=== PATIENT | female | born 1990 | race Caucasian/White ===

== ENCOUNTER 2023-05-08 11:04 | Outpatient (REF) | payer OTHER, SELFPAY ==
[2023-05-08 11:41] LABS: MANUAL DIFF FLAG NO
[2023-05-08 11:51] LABS: Basophils Absolute Auto 0.1 X10*3/uL (0.0-0.2); Basophils Percent Auto 0.9 % (0-2); Eosinophils Absolute Auto 0.2 X10*3/uL (0.0-0.4); Hematocrit 43.8 % (37.0-47.0); Hemoglobin 14.6 g/dl (12.0-16.0); Imm Gran Abs Auto 0.07 X10*3/uL (0.00-0.03); Imm Gran Pct Auto 0.7 % (0.0-0.4); Lymphocytes Absolute Auto 3.2 X10*3/uL (1.2-4.9); Mean Corpuscular HGB Conc 33.3 g/dl (31.0-35.0); Mean Corpuscular Volume 86.9 fL (80.0-98.0); Mean Platelet Volume 10.3 fL (9.4-12.3); Monocytes Absolute Auto 0.7 X10*3/uL (0.1-1.2); Monocytes Percent Auto 6.5 % (2-11); Neutrophils Absolute Auto 6.4 x10*3/uL (2.0-8.3); Neutrophils Percent Auto 59.9 % (45-73); Platelet Count 374 X10*3/uL (160-400); Red Blood Count 5.04 X10*6/uL (4.20-5.50); Red Cell Distribution Width 13.1 % (11.0-16.0); White Blood Count 10.7 X10*3/uL (4.8-10.8)
[2023-05-08 13:00] LABS: Alanine Aminotransferase 20 U/L (0-31); Albumin Level 4.3 g/dL (3.5-5.0); Alkaline Phosphatase 103 U/L (39-117); Anion Gap 10 (12-20); Aspartate Amino Transferase 14 U/L (5-31); Bilirubin Total 0.4 mg/dL (0.0-1.0); Blood Urea Nitrogen 22 mg/dL (9-16); Calcium 9.6 mg/dL (8.4-10.2); Carbon Dioxide 22 mmol/L (22-29); Chloride 113 mmol/L (96-108); Cholesterol 177 mg/dL (<200); Estimated Glomerular Filt Rate > 60; Glucose Random 104 mg/dL (60-115); HDL Cholesterol 54 mg/dL (>40); LDL Cholesterol Calculated 97 mg/dL (<100); Potassium 4.1 mmol/L (3.3-5.1); Sodium 141 mmol/L (135-145); Triglycerides 132 mg/dL (<150)
[2023-05-08 13:15] LABS: TSH reflex Free T4 1.87 uIU/mL (0.32-4.0)
== END 2023-05-08 11:05 | disposition home or self-care (01) ==
LOC: HO.LAB 11:04
PROVIDERS: PCP Internal Medicine; Visit Provider Internal Medicine
DX: Z00.01 Encounter for general adult medical examination with abnormal findings (principal); E04.1 Nontoxic single thyroid nodule; F43.12 Post-traumatic stress disorder, chronic; I10 Essential (primary) hypertension; K58.8 Other irritable bowel syndrome; R32 Unspecified urinary incontinence
CPT/HCPCS: 36415; 80053; 80061; 84443; 85025

== ENCOUNTER 2023-06-01 07:30 | Outpatient (REF) | payer OTHER, SELFPAY ==
--- NOTE | ~2023-06-01 | XR_ITS ---
EXAMINATION: XR SHOULDER, RIGHT CLINICAL INFORMATION: Pain in unspecified shoulder. COMPARISON: None available. TECHNIQUE: Three views of the right shoulder. FINDINGS: Mild degenerative changes in the acromioclavicular joint with joint space narrowing and hypertrophic change. Glenohumeral alignment preserved. XR/XR shoulder RT min 2V IMPRESSION: Mild degenerative changes in the acromioclavicular joint.
== END 2023-06-01 07:31 | disposition home or self-care (01) ==
LOC: HO.HOSX 07:30
PROVIDERS: Visit Provider Orthopaedic Surgery
DX: M25.511 Pain in right shoulder (principal); M24.811 Other specific joint derangements of right shoulder, not elsewhere classified; G56.21 Lesion of ulnar nerve, right upper limb; S70.11XA Contusion of right thigh, initial encounter; Y04.8XXA Assault by other bodily force, initial encounter; Y93.9 Activity, unspecified; Y92.9 Unspecified place or not applicable; Y99.9 Unspecified external cause status
CPT/HCPCS: 73030; 99202

== ENCOUNTER 2023-06-01 10:45 | Outpatient (AMB) | payer OTHER, SELFPAY ==
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
[2023-06-01 10:54] VITALS: BMI 51.2
== END 2023-06-01 11:39 | disposition home or self-care (01) ==
PROVIDERS: PCP Internal Medicine; Visit Provider Orthopaedic Surgery
DX: G56.21 Lesion of ulnar nerve, right upper limb (principal); M24.811 Other specific joint derangements of right shoulder, not elsewhere classified; M54.16 Radiculopathy, lumbar region; S70.11XA Contusion of right thigh, initial encounter
CPT/HCPCS: 99204

== ENCOUNTER 2023-06-13 14:32 | Outpatient (AMB) | payer OTHER, SELFPAY ==
[2023-06-13 14:44] VITALS: BMI 51.2
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
== END 2023-06-13 15:15 | disposition home or self-care (01) ==
PROVIDERS: PCP Internal Medicine; Visit Provider Orthopaedic Surgery
DX: R20.0 Anesthesia of skin (principal); R20.2 Paresthesia of skin; M79.641 Pain in right hand
CPT/HCPCS: 99203

== ENCOUNTER → 2023-06-13 14:32 | Outpatient (BNVA) | payer OTHER, SELFPAY | PROVIDERS: PCP Internal Medicine; Visit Provider Orthopaedic Surgery | DX: R20.2 Paresthesia of skin (principal); R20.0 Anesthesia of skin | CPT/HCPCS: 99202 ==

== ENCOUNTER 2023-06-20 10:25 | Outpatient (AMB) | payer OTHER, SELFPAY ==
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
[2023-06-20 11:39] VITALS: BP 134/86; PULSE 104; RESP 16; O2SAT 96; BMI 54.1
== END 2023-06-20 11:21 | disposition home or self-care (01) ==
PROVIDERS: PCP Internal Medicine; Referring Provider Orthopaedic Surgery; Visit Provider Anesthesiology
DX: M54.16 Radiculopathy, lumbar region (principal); M54.12 Radiculopathy, cervical region; M54.50 Low back pain, unspecified; M54.2 Cervicalgia; M47.812 Spondylosis without myelopathy or radiculopathy, cervical region; G89.4 Chronic pain syndrome
CPT/HCPCS: 99204

== ENCOUNTER → 2023-06-20 10:25 | Outpatient (BNVA) | payer OTHER, SELFPAY | PROVIDERS: PCP Internal Medicine; Referring Provider Orthopaedic Surgery; Visit Provider Anesthesiology | DX: M54.16 Radiculopathy, lumbar region (principal); M47.22 Other spondylosis with radiculopathy, cervical region; G89.4 Chronic pain syndrome | CPT/HCPCS: 99202 ==

== ENCOUNTER 2023-07-02 09:28 | Outpatient (AMB) | payer OTHER, SELFPAY ==
--- NOTE | 2023-07-02 09:48 | A.OFFVIS_ITS ---
Intake Vital Signs 07/02/23 09:49 Height 5 ft 1 in Weight 286 lb BMI 54.0 Intake Visit Reasons: OV - Right Shoulder MRI Review Intake Note: Maryam is a 33 year old right hand dominant female who presents today for an MRI review of the right shoulder. Patient reports that she is having continued pain. Allergies cariprazine [From Vraylar] Allergy (Verified 07/02/23 09:49) lip swelling ceftriaxone [From Rocephin] Allergy (Verified 07/02/23 09:49) Anaphylaxis HPI OV - Right Shoulder MRI Review HPI Details Maryam is a 33 year old female who presents today for an MRI review of the right shoulder. She has been in PT for her back and is focusing on that. Her shoulder still bothers her all the time. It is not worse at night but does bother her with reaching and lifting activities. 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 MRI 06/16/2023 at [facility]: Impression: 1. There is a very small focus of partial articular surface tearing of the distal insertion of the supraspinatus tendon. 2. No full thickness tear of RTC is noted Assessment & Plan Assessment & Plan (1) Internal derangement of right shoulder: Code(s): M24.811 - Other specific joint derangements of right shoulder, not elsewhere classified Plan: Maryam is doing PT. Her MRI is unremarkable. I recommend PT. There is no intervention warranted at this time. She is a patient in pain management and should continue under their care. Coding Level of Care Code Est Pt Level 4 (82836) Diagnoses Internal derangement of right shoulder M24.811
[2023-07-02 09:49] VITALS: BMI 54.0
== END 2023-07-02 10:21 | disposition home or self-care (01) ==
PROVIDERS: PCP Internal Medicine; Visit Provider Orthopaedic Surgery
DX: M24.811 Other specific joint derangements of right shoulder, not elsewhere classified (principal)
CPT/HCPCS: 99214

== ENCOUNTER → 2023-07-02 09:28 | Outpatient (BNVA) | payer OTHER, SELFPAY | PROVIDERS: PCP Internal Medicine; Visit Provider Orthopaedic Surgery | DX: M24.811 Other specific joint derangements of right shoulder, not elsewhere classified (principal) | CPT/HCPCS: 99212 ==

== ENCOUNTER 2023-07-09 11:25 | Outpatient (AMB) | payer OTHER, SELFPAY ==
[2023-07-09 11:28] VITALS: BP 136/82; PULSE 104; RESP 16; O2SAT 98; BMI 54.0
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
== END 2023-07-09 11:48 | disposition home or self-care (01) ==
PROVIDERS: PCP Internal Medicine; Visit Provider Anesthesiology
DX: M54.12 Radiculopathy, cervical region (principal); M47.812 Spondylosis without myelopathy or radiculopathy, cervical region; G89.4 Chronic pain syndrome
CPT/HCPCS: 99213

== ENCOUNTER → 2023-07-09 11:25 | Outpatient (BNVA) | payer OTHER, SELFPAY | PROVIDERS: PCP Internal Medicine; Visit Provider Anesthesiology | DX: M47.22 Other spondylosis with radiculopathy, cervical region (principal); M54.6 Pain in thoracic spine; M54.50 Low back pain, unspecified; G89.4 Chronic pain syndrome | CPT/HCPCS: 99212 ==

== ENCOUNTER 2023-07-20 08:15 | Outpatient (REF) | payer OTHER, SELFPAY ==
--- NOTE | 2023-07-20 08:18 | EMG_ITS ---
Chief complaint: Neck pain, arm pain, hand numbness Reason for referral: Evaluate for radiculopathy versus Carpal Tunnel Syndrome Referred by: Dr. Concepcion Procedure done: Bilateral upper extremities NCS/EMG Precautions and/or limitations: None The limb temperature was monitored continuously and remained between 32-36 degrees C during the performance of the NCS. Nerve Conduction Studies Anti Sensory Summary Table ?Stim Site NR Onset (ms) Norm Onset (ms) Peak (ms) Norm Peak (ms) O-P Amp (?V) Norm O-P Amp Site1 Site2 Delta-0 (ms) Dist (cm) Ramsey (m/s) Norm Ramsey (m/s) Left Median Anti Sensory (2nd Digit) Wrist ? 2.5 3.2 <3.6 38.1 >10 Wrist 2nd Digit 2.5 14.0 56 Right Median Anti Sensory (2nd Digit) Wrist ? 2.3 3.1 <3.6 48.0 >10 Wrist 2nd Digit 2.3 14.0 61 Right Radial Anti Sensory (Thumb) Forearm ? 1.4 2.0 <3.1 16.0 Forearm Thumb 1.4 0.0 Left Ulnar Anti Sensory (5th Digit) Wrist ? 2.4 3.0 <3.7 27.8 >15.0 Wrist 5th Digit 2.4 14.0 58 Right Ulnar Anti Sensory (5th Digit) Wrist ? 2.3 2.9 <3.7 23.1 >15.0 Wrist 5th Digit 2.3 14.0 61 Motor Summary Table ?Stim Site NR Onset (ms) Norm Onset (ms) O-P Amp (mV) Norm O-P Amp iAmp (mV) Amp (1st) (%) Site1 Site2 Delta-0 (ms) Dist (cm) Ramsey (m/s) Norm Ramsey (m/s) Left Median Motor (Abd Poll Brev) Wrist ? 2.8 <3.9 8.6 >4.5 10.9 100.0 Elbow Wrist 3.6 19.5 54 >45 Elbow ? 6.4 8.2 10.3 95.3 Right Median Motor (Abd Poll Brev) Wrist ? 3.5 <3.9 7.5 >4.5 9.6 100.0 Elbow Wrist 3.4 17.0 50 >45 Elbow ? 6.9 7.4 9.2 98.7 Left Ulnar Motor (Abd Dig Minimi) Wrist ? 2.4 <3.0 6.7 >5 7.8 100.0 B Elbow Wrist 3.1 18.5 60 >45 B Elbow ? 5.5 7.0 8.4 104.5 A Elbow B Elbow 1.4 10.0 71 >45 A Elbow ? 6.9 7.4 8.9 110.4 Right Ulnar Motor (Abd Dig Minimi) Wrist ? 2.0 <3.0 7.3 >5 8.9 100.0 B Elbow Wrist 3.5 19.0 54 >45 B Elbow ? 5.5 7.2 8.8 98.6 A Elbow B Elbow 1.2 10.0 83 >45 A Elbow ? 6.7 7.5 9.2 102.7 EMG ?Side Muscle Nerve Root Ins Act Fibs Psw Amp Dur Poly Recrt Int Pat Comment Right 1stDorInt Ulnar C8-T1 Nml Nml Nml Nml Nml 0 Nml Complete Right FlexCarRad Median C6-7 Nml Nml Nml Nml Nml 0 Nml Complete Right Biceps Musculocut C5-6 Nml Nml Nml Nml Nml 0 Nml Complete Right Triceps Radial C6-7-8 Nml Nml Nml Nml Nml 0 Nml Complete Right Deltoid Axillary C5-6 Nml Nml Nml Nml Nml 0 Nml Complete Left 1stDorInt Ulnar C8-T1 Nml Nml Nml Nml Nml 0 Nml Complete Left FlexCarRad Median C6-7 Nml Nml Nml Nml Nml 0 Nml Complete Left Biceps Musculocut C5-6 Nml Nml Nml Nml Nml 0 Nml Complete Left Triceps Radial C6-7-8 Nml Nml Nml Nml Nml 0 Nml Complete Left Deltoid Axillary C5-6 Nml Nml Nml Nml Nml 0 Nml Complete Paraspinal EMG ?Side Muscle Nerve Root Ins Act Fibs Psw Comment Right Cervical Upper Rami Nml Nml Nml Right Cervical Mid Rami Nml Nml Nml Right Cervical Lower Rami Nml Nml Nml Left Cervical Upper Rami Nml Nml Nml Left Cervical Mid Rami Nml Nml Nml Left Cervical Lower Rami Nml Nml Nml FINDINGS: All motor and sensory nerves tested showed normal latencies, amplitudes and conduction velocities. Concentric needle EMG was performed in selected muscles of the bilateral upper extremities and cervical paraspinal. Study did not reveal signs of electric abnormalities as shown in the table below. IMPRESSION: 1. This is a normal study. 2. There is no electrodiagnostic evidence for median neuropathy, ulnar neuropathy, brachial plexopathy, or cervical radiculopathy. Thank you for your kind referral. Jannet Mccrary MD, VERONICA Board Certified, [place] [employer] and [employer] (ABPMR) Board Certified, [place] Board of Electrodiagnostic Medicine (ABEM) CODIN 71422 x 2 MTDD
== END 2023-07-20 08:16 | disposition home or self-care (01) ==
LOC: HO.NEURO 08:15
PROVIDERS: PCP Internal Medicine; Visit Provider Anesthesiology
DX: M54.12 Radiculopathy, cervical region (principal); M47.812 Spondylosis without myelopathy or radiculopathy, cervical region; G89.4 Chronic pain syndrome
CPT/HCPCS: 95886; 95911

== ENCOUNTER → 2023-07-20 08:18 | Outpatient (BNV) | payer OTHER, SELFPAY | PROVIDERS: PCP Internal Medicine; Visit Provider Physical Medicine & Rehabilitation | DX: M79.601 Pain in right arm (principal); M79.602 Pain in left arm; R20.2 Paresthesia of skin; M54.2 Cervicalgia | CPT/HCPCS: 95886; 95911 ==

== ENCOUNTER 2023-08-09 11:35 | Outpatient (AMB) | payer OTHER, SELFPAY ==
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
[2023-08-09 11:58] VITALS: BP 134/82; PULSE 104; RESP 16; O2SAT 98; BMI 55.5
== END 2023-08-09 12:29 | disposition home or self-care (01) ==
PROVIDERS: PCP Internal Medicine; Visit Provider Anesthesiology
DX: M47.812 Spondylosis without myelopathy or radiculopathy, cervical region (principal); G89.4 Chronic pain syndrome
CPT/HCPCS: 99214

== ENCOUNTER → 2023-08-09 11:35 | Outpatient (BNVA) | payer OTHER, SELFPAY | PROVIDERS: PCP Internal Medicine; Visit Provider Anesthesiology | DX: M47.812 Spondylosis without myelopathy or radiculopathy, cervical region (principal); G89.4 Chronic pain syndrome | CPT/HCPCS: 99212 ==

== ENCOUNTER 2023-08-20 13:08 | Outpatient (AMB) | payer OTHER, SELFPAY ==
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
[2023-08-20 13:29] VITALS: BP 124/84; PULSE 106; RESP 16; O2SAT 98; BMI 55.4
== END 2023-08-20 13:36 | disposition home or self-care (01) ==
PROVIDERS: PCP Internal Medicine; Visit Provider Anesthesiology
DX: M47.812 Spondylosis without myelopathy or radiculopathy, cervical region (principal); G89.4 Chronic pain syndrome
CPT/HCPCS: 99213

== ENCOUNTER → 2023-08-20 13:08 | Outpatient (BNVA) | payer OTHER, SELFPAY | PROVIDERS: PCP Internal Medicine; Visit Provider Anesthesiology | DX: M47.812 Spondylosis without myelopathy or radiculopathy, cervical region (principal); G89.4 Chronic pain syndrome | CPT/HCPCS: 99212 ==

== ENCOUNTER 2023-08-23 11:03 | Outpatient (REF) | payer OTHER, SELFPAY ==
[2023-08-23 12:49] LABS: Alanine Aminotransferase 20 U/L (0-31); Alkaline Phosphatase 110 U/L (39-117); Anion Gap 14 (12-20); Aspartate Amino Transferase 11 U/L (5-31); Bilirubin Total 0.3 mg/dL (0.0-1.0); Blood Urea Nitrogen 16 mg/dL (9-16); Calcium 9.2 mg/dL (8.4-10.2); Carbon Dioxide 20 mmol/L (22-29); Chloride 110 mmol/L (96-108); Estimated Glomerular Filt Rate > 60; Glucose Random 141 mg/dL (60-115); Potassium 3.4 mmol/L (3.3-5.1); Sodium 141 mmol/L (135-145); Total Protein 7.7 g/dL (6.5-8.0)
== END 2023-08-23 11:04 | disposition home or self-care (01) ==
LOC: HO.LAB 11:03
PROVIDERS: PCP Internal Medicine; Visit Provider Internal Medicine
DX: E04.1 Nontoxic single thyroid nodule (principal); F43.12 Post-traumatic stress disorder, chronic; I10 Essential (primary) hypertension; Z68.42 Body mass index [BMI] 45.0-49.9, adult
CPT/HCPCS: 36415; 80053

== ENCOUNTER 2023-09-25 06:09 | Outpatient (REF) | payer OTHER, SELFPAY ==
--- NOTE | ~2023-09-25 | FL_ITS ---
EXAMINATION: XR FLUOROSCOPY WITH IMAGES CLINICAL INFORMATION: Cervical spondylosis. COMPARISON: None available. TECHNIQUE: Fluoroscopy Supervised By: Dr. Damian Concepcion. Fluoroscopy Time: 0.7 minutes. Cumulative Dose: 9.63 mGy. DAP: 2.16 Gycm2. Images: 8. FINDINGS: Intraoperative fluoroscopy and spot films were performed during a procedure in the OR. Spinal needles overlying the lateral portions of what is likely C4, C5 and C6 bilaterally. Contrast media is seen injected near all needle tips likely in the epidural space. Please correlate with Dr. Damian Concepcion's report for complete details. FL/FL guidance in treatment room IMPRESSION: Intraoperative fluoroscopy and spot films were obtained. Please see Dr. Damian Concepcion's report for complete details.
== END 2023-09-25 06:10 | disposition home or self-care (01) ==
LOC: CF 06:09
PROVIDERS: Visit Provider Anesthesiology
DX: M47.812 Spondylosis without myelopathy or radiculopathy, cervical region (principal); G89.4 Chronic pain syndrome
CPT/HCPCS: 64490; 64491; J2795; Q9967

== ENCOUNTER 2023-09-25 10:52 | Outpatient (AMB) | payer OTHER, SELFPAY ==
--- NOTE | 2023-09-25 11:31 | MHC.OFFVIS ---
Vital Signs 09/25/23 12:09 09/25/23 12:10 Height 5 ft 1 in 5 ft 1 in Weight 293 lb 193 lb BMI 55.4 36.5 BP 134/80 134/92 H Blood Pressure Location Lt brachial Lt brachial Position Sitting Sitting Respiration 18 18 Pulse 106 H 100 Pulse Source Pulse Oximeter Pulse Oximeter Pulse Oximetry (%) 18 L 99 Oxygen Delivery Method Room Air Room Air Comment pre-op post-op Intake Visit Reasons: BILATERAL DX C4, C5, C6 MBB Allergies cariprazine [From Vraylar] Allergy (Verified 09/25/23 12:11) lip swelling ceftriaxone [From Rocephin] Allergy (Verified 09/25/23 12:11) Anaphylaxis PFSH Social History (Updated 06/13/23 @ 14:55 by Rosanne Meyer [facility]) Patient Tobacco Use Status: Former Tobacco user Current occupational status: disabled 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 ?Informed consent was explained to the patient. All questions were explained and answered.? The patient was taken inside the operating room where she was positioned prone on the operating table. Time-out was performed delineating correct site, side, the nature of the procedure, patient's allergy, preoperative antibiotic if needed.? All operating room staff was participating in OR time-out procedure. The back of the neck and upper back were prepped with ChloraPrep and draped with sterile towels.? Sterilely draped C-arm was brought over the operating field and sq picture of? C4-C5-C6 vertebrae were delineated on the screen.? Points of interest were delineated as lateral masses bilaterally of the vertebrae as above. The waste of each lateral mass was chosen as the target of the tip of the needles on AP view and lateral view was used as a safety view for the tips of the needles position.?? The projections of the point of interest to the skin were injected with the small amount of local anesthetic lidocaine 2% 1-1.5 cc.? After that 22 gauge 3and 1/2 inch? spinal needles were driven to the point of interest in tunnel vision fashion. After needles gently contacted the bone at the point of interests the needle was injected with small amount of the contrast. The injections did not demonstrate intravascular or intrathecal spread.. After that ropivacaine 0.5%-1cc. was injected into each location of the needles. ( total dose of Kenalog was 40 mgs).? Upon completion of the injections the needles were removed and sterile dressings were applied, the patient was a taken? outside of the operating room to recovery room where she recovered uneventfully. (2) Chronic pain syndrome: Code(s): G89.4 - Chronic pain syndrome Category: Medical Plan I will perform diagnostic C4-C5 C6 medial branch block on this patient. I will see her on appointment for the up few days after the injection. To support those conclusions I requested her to fax to us the printout of cervical MRI report which is on her cell phone. Orders: Orders FL guidance in treatment room Today M47.812 - Spondylosis without myelopathy or radiculopathy, cervical region Medications: New lorazepam (Ativan) Take 30 minutes prior to arrival to procedure 1 mg PO ONCE 1 tab 0RF anxiety Coding Level of Care Code Procedure Only Diagnoses Spondylosis of cervical joint without myelopathy M47.812 Chronic pain syndrome G89.4
[2023-09-25 12:09] VITALS: BP 134/80; PULSE 106; RESP 18; O2SAT 18; BMI 55.4
[2023-09-25 12:10] VITALS: BP 134/92; PULSE 100; RESP 18; O2SAT 99; BMI 36.5
== END 2023-09-25 11:58 | disposition home or self-care (01) ==
LOC: HO.PMCPRC 10:52
PROVIDERS: PCP Internal Medicine; Visit Provider Anesthesiology
DX: M47.812 Spondylosis without myelopathy or radiculopathy, cervical region (principal); G89.4 Chronic pain syndrome
CPT/HCPCS: 64490; 64491

== ENCOUNTER 2023-10-01 10:13 | Outpatient (AMB) | payer OTHER, SELFPAY ==
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
[2023-10-01 10:41] VITALS: BP 128/86; PULSE 100; RESP 16; O2SAT 100; BMI 36.5
== END 2023-10-01 11:53 | disposition home or self-care (01) ==
PROVIDERS: PCP Internal Medicine; Visit Provider Anesthesiology
DX: M47.812 Spondylosis without myelopathy or radiculopathy, cervical region (principal); G89.4 Chronic pain syndrome
CPT/HCPCS: 99214

== ENCOUNTER → 2023-10-01 10:13 | Outpatient (BNVA) | payer OTHER, SELFPAY | PROVIDERS: PCP Internal Medicine; Visit Provider Anesthesiology | DX: M47.812 Spondylosis without myelopathy or radiculopathy, cervical region (principal); G89.4 Chronic pain syndrome; Z98.890 Other specified postprocedural states | CPT/HCPCS: 99212 ==

== ENCOUNTER 2023-10-16 13:29 | Outpatient (AMB) | payer OTHER, SELFPAY ==
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
[2023-10-16 13:57] VITALS: BMI 36.5
== END 2023-10-16 14:39 | disposition home or self-care (01) ==
PROVIDERS: PCP Internal Medicine; Visit Provider Orthopaedic Surgery
DX: R20.0 Anesthesia of skin (principal); R20.2 Paresthesia of skin; M47.812 Spondylosis without myelopathy or radiculopathy, cervical region; G89.4 Chronic pain syndrome
CPT/HCPCS: 99212

== ENCOUNTER → 2023-10-16 13:29 | Outpatient (BNVA) | payer OTHER, SELFPAY | PROVIDERS: PCP Internal Medicine; Visit Provider Orthopaedic Surgery | DX: R20.0 Anesthesia of skin (principal); R20.2 Paresthesia of skin; G89.4 Chronic pain syndrome; M47.812 Spondylosis without myelopathy or radiculopathy, cervical region | CPT/HCPCS: 99212 ==

== ENCOUNTER 2023-10-22 11:36 | Outpatient (AMB) | payer OTHER, SELFPAY ==
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
[2023-10-22 11:54] VITALS: BP 136/84; PULSE 102; RESP 16; O2SAT 97; BMI 56.5
== END 2023-10-22 12:02 | disposition home or self-care (01) ==
PROVIDERS: PCP Internal Medicine; Visit Provider Anesthesiology
DX: M47.812 Spondylosis without myelopathy or radiculopathy, cervical region (principal); G89.4 Chronic pain syndrome
CPT/HCPCS: 99213

== ENCOUNTER → 2023-10-22 11:36 | Outpatient (BNVA) | payer OTHER, SELFPAY | PROVIDERS: PCP Internal Medicine; Visit Provider Anesthesiology | DX: M47.812 Spondylosis without myelopathy or radiculopathy, cervical region (principal); G89.4 Chronic pain syndrome | CPT/HCPCS: 99212 ==

== ENCOUNTER 2023-11-22 15:13 | Outpatient (REF) | payer OTHER, SELFPAY ==
[2023-11-22 16:47] LABS: Alanine Aminotransferase 26 U/L (0-31); Alkaline Phosphatase 113 U/L (39-117); Anion Gap 13 (12-20); Aspartate Amino Transferase 12 U/L (5-31); Bilirubin Total 0.3 mg/dL (0.0-1.0); Blood Urea Nitrogen 16 mg/dL (9-16); Carbon Dioxide 21 mmol/L (22-29); Chloride 110 mmol/L (96-108); Estimated Glomerular Filt Rate > 60; Glucose Random 102 mg/dL (60-115); Potassium 3.9 mmol/L (3.3-5.1); Sodium 140 mmol/L (135-145); Total Protein 7.7 g/dL (6.5-8.0)
[2023-11-22 16:48] LABS: Estimated Average Glucose 108 mg/dL; Hemoglobin A1c % 5.4 % (<6.0)
[2023-11-22 17:04] LABS: Thyroid Stimulating Hormone 1.83 uIU/mL (0.32-4.0)
== END 2023-11-22 15:14 | disposition home or self-care (01) ==
LOC: HO.LAB 15:13
PROVIDERS: PCP Internal Medicine; Visit Provider Internal Medicine
DX: E04.1 Nontoxic single thyroid nodule (principal); I10 Essential (primary) hypertension; K62.5 Hemorrhage of anus and rectum; K62.89 Other specified diseases of anus and rectum
CPT/HCPCS: 36415; 80053; 83036; 84443

== ENCOUNTER 2023-11-26 12:05 | Outpatient (REF) | payer OTHER, SELFPAY ==
[2023-11-26 13:09] LABS: MANUAL DIFF FLAG NO
[2023-11-26 13:31] LABS: Basophils Absolute Auto 0.1 X10*3/uL (0.0-0.2); Basophils Percent Auto 0.9 % (0-2); Eosinophils Absolute Auto 0.2 X10*3/uL (0.0-0.4); Eosinophils Percent Auto 1.8 % (0-4); Hematocrit 38.8 % (37.0-47.0); Hemoglobin 13.1 g/dl (12.0-16.0); Imm Gran Abs Auto 0.13 X10*3/uL (0.00-0.03); Imm Gran Pct Auto 1.2 % (0.0-0.4); Lymphocytes Absolute Auto 3.1 X10*3/uL (1.2-4.9); Lymphocytes Percent Auto 27.3 % (20-40); Mean Corpuscular HGB Conc 33.8 g/dl (31.0-35.0); Mean Corpuscular Hemoglobin 28.3 pg (27.0-33.0); Mean Corpuscular Volume 83.8 fL (80.0-98.0); Mean Platelet Volume 9.9 fL (9.4-12.3); Monocytes Absolute Auto 0.7 X10*3/uL (0.1-1.2); Monocytes Percent Auto 6.1 % (2-11); Neutrophils Absolute Auto 7.1 x10*3/uL (2.0-8.3); Neutrophils Percent Auto 62.7 % (45-73); Platelet Count 409 X10*3/uL (160-400); Red Blood Count 4.63 X10*6/uL (4.20-5.50); White Blood Count 11.3 X10*3/uL (4.8-10.8)
== END 2023-11-26 12:06 | disposition home or self-care (01) ==
LOC: HO.10HDL 12:05
PROVIDERS: Visit Provider Internal Medicine
DX: E04.1 Nontoxic single thyroid nodule (principal); I10 Essential (primary) hypertension; K62.5 Hemorrhage of anus and rectum; R06.02 Shortness of breath
CPT/HCPCS: 36415; 85025

== ENCOUNTER 2023-11-29 11:00 | Outpatient (RCR) | payer OTHER, SELFPAY | END 2024-05-15 15:19 | disposition home or self-care (01) | LOC: HO.PT 11:00 | PROVIDERS: PCP Internal Medicine; Visit Provider Orthopaedic Surgery | DX: S70.11XA Contusion of right thigh, initial encounter (principal); M54.16 Radiculopathy, lumbar region | CPT/HCPCS: 97110; 97112; 97116; 97140; 97163; 97530; 97535 ==

== ENCOUNTER 2023-12-04 12:23 | Emergency (ER) | payer OTHER, SELFPAY ==
--- NOTE | ~2023-12-04 | CT_ITS ---
EXAMINATION: CT ABDOMEN AND PELVIS WITHOUT AND WITH CONTRAST CLINICAL INFORMATION: Abdominal pain, hematochezia, melena COMPARISON: None available. TECHNIQUE: Multidetector volumetric imaging was performed of the abdomen and pelvis before and after the IV administration of 80 mL of Omnipaque 300 intravenous contrast. Sagittal and coronal reformatted images were obtained on the technologist's workstation. This CT examination was performed using dose optimization techniques as appropriate, variously including the following: *Automated exposure control *Adjustment of mA and/or kV according to patient size (this includes techniques or standardized protocols for targeted exams where dose is matched to indication/reason for exam; i.e. extremities or head) *Use of iterative reconstruction technique DLP: 2914 mGy-cm FINDINGS: LUNG BASES: The visualized lung bases are unremarkable. LIVER, GALLBLADDER, AND BILIARY TREE: The liver is normal in size, shape, and attenuation. No focal hepatic lesion or biliary ductal dilatation is present. Gallbladder absent. PANCREAS: Unremarkable SPLEEN: Unremarkable ADRENAL GLANDS: Unremarkable KIDNEYS AND URETERS: The kidneys are normal in size, shape, and attenuation. No hydronephrosis, hydroureter, or calculi seen. No perinephric stranding. BLADDER: Unremarkable GASTROINTESTINAL TRACT: The small and large bowel are unremarkable. The appendix is unremarkable. ABDOMINAL WALL: No significant hernia is appreciated. LYMPH NODES: Normal VASCULAR: Unremarkable PELVIC VISCERA: Unremarkable OSSEOUS STRUCTURES: Unremarkable CT/CT gi bleed abd pel wo/w IVcon IMPRESSION: No evidence of active GI bleeding. No acute abdominal or pelvic pathology. Fleischner guidelines were followed. Electronically signed by: Mukul Suazo DO 12/04/2023 09:16 PM EDT
--- NOTE | 2023-12-04 12:41 | ED.GENADULT ---
HPI - General Adult General Chief complaint: GI Bleed Stated complaint: Rectal bleeding Time Seen by Provider: 12/04/23 17:50 Source: patient Mode of arrival: ambulatory Limitations: no limitations History of Present Illness HPI narrative: Patient is a 33-year-old female who presents to the emergency department for evaluation. She reports that over the past few weeks she has been experiencing bright red blood per rectum when she is having bowel movements with associated rectal pain. Over the past few days she has noticed an increase in the amount of bleeding, she states that today the blood ?filled the toilet full?. She does admit to noticing a small amount of bright red blood on her undergarments even when she is not having a bowel movement. Reports that she has known hemorrhoids but has never experienced ?this much bleeding?. She denies any alternative sources of bleeding such as hematuria. She has associated nausea but has not experienced vomiting. She admits to feeling intermittently short of breath and lightheaded though she states that this is not uncommon for her at baseline. Her primary care doctor has sent a referral for Gastroenterology, she has an appointment scheduled for Sunday08/07/2023 through [facility]. She does admit to having colonoscopies in the past due to ?GI issues as a child? and believes her last 1 was in 2018 or 2019, but reports having more than 1 and total without any abnormality to her knowledge. She admits to having lower abdominal pain associated with this, however at the time of evaluation she has diffuse tenderness upon palpation and at this time reports her upper abdomen to be most painful. Has a history of cholecystectomy and appendectomy. She is currently on meloxicam for pain management due to chronic pain, she denies use of additional NSAIDs. Related Data Home Medications ?Medication ?Instructions ?Recorded ?Confirmed dicyclomine 10 mg capsule 10 mg PO BID 06/01/23 hydroxyzine HCl 25 mg tablet 25 mg PO BEDTIME 06/01/23 meloxicam 15 mg tablet 15 mg PO DAILY 06/01/23 methylphenidate HCl 36 mg 36 mg PO DAILY 06/01/23 tablet,extended release 24 hr (Concerta) omeprazole 20 mg capsule,delayed 20 mg PO DAILY 06/01/23 release prazosin 2 mg capsule 2 mg PO BEDTIME 06/01/23 tizanidine 2 mg capsule 2 mg PO Q8H PRN 06/01/23 prazosin 2 mg capsule 4 mg PO BEDTIME 07/02/23 topiramate 100 mg capsule,extended 150 mg PO DAILY 07/02/23 release 24 hr losartan 50 mg-hydrochlorothiazide 1 tab PO DAILY 10/16/23 12.5 mg tablet Previous Rx's ?Medication ?Instructions ?Recorded lorazepam 1 mg tablet (Ativan) 1 mg PO ONCE anxiety #1 tab 09/20/23 nitrofurantoin 100 mg PO Q12H 7 days #14 caps 12/04/23 monohydrate/macrocrystals 100 mg capsule (Macrobid) Allergies Allergy/AdvReac Type Severity Reaction Status Date / Time bee pollen [bee stings] Allergy Anaphylaxis Verified 12/04/23 12:43 cariprazine [From Vraylar] Allergy lip Verified 12/04/23 12:43 swelling ceftriaxone [From Rocephin] Allergy Anaphylaxis Verified 12/04/23 12:43 strawberry Allergy Anaphylaxis Verified 12/04/23 12:43 Review of Systems Review of Systems: Yes all other systems are reviewed and are negative [facility] Past Medical History Attestation statement: The following information was validated with the patient. 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 No acute distress.?Normal affect. Neck: Normal inspection.? Neck supple.?? CVS: Heart sounds normal. Normal heart rate and rhythm.? Pulses normal.?? Respiratory: No respiratory distress.? Lung sounds clear to auscultation bilaterally?? Abdomen: Soft with diffuse tenderness upon palpation. Negative Portillo sign. No rebound tenderness. No rigidity. No guarding. No CVA tenderness. Normoactive bowel sounds. No pulsatile mass.?? Rectal: Performed with refrigeration engine operator, ED CECILE Abreu. No fissures noted to the rectal region, external hemorrhoids are present but no active bleeding or erythema. Tolerated digital rectal examination with some mild discomfort, noted maroon-colored stool to the rectal vault. No palpable masses. Skin: Skin warm and dry.? Normal skin color.? Extremities: No lower extremity edema.? Neuro: Moves all extremities spontaneously. Sensation intact bilaterally. Ambulates with slow steady gait and the use of a walker Course Course Course Narrative: This is an RME done by VERÓNICA Bahena: Additional HPI, ROS, PE not included below will be deferred to primary provider. 33 year old female with concerns of rectal bleeding and abdominal pain (10/16) for past few weeks with a/c nausea, sob. Pt states today the bleeding was more severe and filled the toilet bowl, leaving her feeling lightheaded, but denies LOC. Denies any fevers, cp, vomiting, diarrhea, changes in urination. She has an appointment with GI on sunday (12/07/2023). Plan- labs Appearance: Alert.? Oriented X3.? No acute cardiopulmonary distress distress.? Head: Normocephalic, atraumatic, no step-offs or deformities Neck: Normal inspection.? Neck supple.? CVS: Pulses normal.? Respiratory: No respiratory distress.? Abdomen: Soft and nontender.? Skin: ? Normal skin color. Extremities: 5/5 strength to bilateral upper and lower extremities Neuro: Oriented X 3.? No motor deficit.? No sensory deficit. Reevaluation(s) Reevaluation #1: Urinalysis with microscopic hematuria positive nitrites and pyuria concerning for urinary tract infection, squamous epithelial cells present, has allergy to Rocephin, treated with Macrobid. Pending CT abdomen and pelvis at this time. Time: 19:00 Medications Administered Discontinued Medications Generic Name Dose Route Start Last Admin Trade Name Freq PRN Reason Stop Dose Admin Al Hydroxide/Mg Hydroxide 30 ml 12/04/23 19:45 12/04/23 19:50 Magnesium Hydrox/Alum Hydrox 30 Ml Oral.Susp PO 12/04/23 19:46 30 ml ONCE ONE Administration Sodium Chloride 1,000 mls @ 999 mls/hr 12/04/23 18:45 12/04/23 20:08 Ns IV 12/04/23 19:45 Infused .Q1H1M ELLIOT Infusion Iohexol 100 ml 12/04/23 20:42 12/04/23 20:42 Iohexol 350 Mg/Ml 100 Ml Infus..Btl IV 12/04/23 20:43 80 ml ONCE ONE Administration Lidocaine HCl 15 ml 12/04/23 19:45 12/04/23 19:50 Lidocaine Hcl Viscous 2 % 15 Ml Solution MUCOUS MEM 12/04/23 19:46 15 ml ONCE ONE Administration Morphine Sulfate 4 mg 12/04/23 18:38 12/04/23 19:00 Morphine Sulfate 4 Mg/Ml Cartridge IVPUSH 12/04/23 18:39 4 mg ONCE ONE Administration Protocol Nitrofurantoin Macrocrystals 100 mg 12/04/23 19:06 12/04/23 19:11 Nitrofurantoin Monohyd/M-Cryst 100 Mg Capsule PO 12/04/23 19:07 100 mg ONCE ONE Administration Ondansetron HCl 4 mg 12/04/23 18:38 12/04/23 19:00 Ondansetron Hcl 4 Mg/2 Ml Vial IVPUSH 12/04/23 18:39 4 mg ONCE ONE Administration Medical Decision Making Medical Decision Making MDM Narrative: Patient is a 33-year-old female who presents emergency department for evaluation of rectal bleeding and abdominal pain as per HPI. Physical exam portions as per PE portion of this note, notable for diffuse tenderness upon palpation without rigidity or guarding, for rectal examination reveals no fissures, she has external hemorrhoids none of which appear actively bleeding, she had tenderness during rectal examination with maroon-colored stools noted. Reviewed serum labs, CBC indicates a mild leukocytosis of 11,500, no anemia or thrombocytopenia. No significant electrolyte derangement. No YUMIKO. Mildly elevated alk-phos. Plan to obtain CT of the abdomen pelvis for further evaluation, diverticulitis, colitis. Differential Diagnosis Differential Diagnoses: The differential diagnosis associated with the presentation includes (See narrative above) Admission/Observation Consideration of admission/observation: Escalation of care including admission/observation considered (See narrative above in course narrative for further detail) Lab Data MDM Lab Attestation statement: I reviewed the patient's lab results. (See narrative above) 12/04/23 13:27 12/04/23 12:58 Labs: Lab Results 12/04/23 12/04/23 12/04/23 Range/Units 12:58 13:27 16:51 WBC 11.5 H (4.8-10.8) X10*3/uL RBC 4.84 (4.20-5.50) X10*6/uL Hgb 13.6 (12.0-16.0) g/dl Hct 40.6 (37.0-47.0) % MCV 83.9 (80.0-98.0) fL MCH 28.1 (27.0-33.0) pg MCHC 33.5 (31.0-35.0) g/dl RDW 13.7 (11.0-16.0) % Plt Count 397 (160-400) X10*3/uL MPV 9.3 L (9.4-12.3) fL Immature Gran % (Auto) 0.8 H (0.0-0.4) % Neut % (Auto) 66.4 (45-73) % Lymph % (Auto) 24.1 (20-40) % [place] % (Auto) 5.7 (2-11) % Eos % (Auto) 2.2 (0-4) % Baso % (Auto) 0.8 (0-2) % Lymph # (Auto) 2.8 (1.2-4.9) X10*3/uL [place] # (Auto) 0.7 (0.1-1.2) X10*3/uL Eos # (Auto) 0.3 (0.0-0.4) X10*3/uL Baso # (Auto) 0.1 (0.0-0.2) X10*3/uL Abs Immat Gran (auto) 0.09 H (0.00-0.03) X10*3/uL Absolute Neuts (auto) 7.6 (2.0-8.3) x10*3/uL Absolute Nucleated RBC 0.000 (0.0-0.012) X10*3/uL Nucleated RBC % (auto) 0.0 (0.0-0.2) /100WBC PT 11.2 (11.1-13.3) SEC INR 0.9 (0.9-1.1) Sodium 140 (135-145) mmol/L Potassium 3.8 (3.3-5.1) mmol/L Chloride 110 H (96-108) mmol/L Carbon Dioxide 20 L (22-29) mmol/L Anion Gap 14 (12-20) BUN 14 (9-16) mg/dL Creatinine 0.95 (0.5-1.4) mg/dL Estim Creat Clear Calc 112.7 Estimated GFR > 60 Random Glucose 132 H (60-115) mg/dL Calcium 9.7 D (8.4-10.2) mg/dL Total Bilirubin 0.3 (0.0-1.0) mg/dL AST 13 (5-31) U/L ALT 22 (0-31) U/L Alkaline Phosphatase 123 H (39-117) U/L Total Protein 8.1 H (6.5-8.0) g/dL Albumin 4.2 (3.5-5.0) g/dL Beta HCG, Quant < 2 mIU/mL Urine Color Yellow Urine Appearance Cloudy Urine pH 6.5 (5.0-9.0) Ur Specific Lampe 1.020 (1.005-1.025) Urine Protein Negative (Neg-Trace) mg/dL Urine Glucose (UA) Negative (Negative) mg/dL Urine Ketones Negative (Negative) mg/dL Urine Blood Large (3+) H (Negative) Urine Nitrite Positive H (Negative) Ur Leukocyte Esterase Moderate (2+) H (Negative) Urine RBC 3-5 H (0-2) /HPF Urine WBC 21-50 H (0-5) /HPF Ur Squamous Epith Cells 0-2 (0-2) /HPF Urine Bacteria 4+ (None Seen) Hyaline Casts 0-2 (0-2) /LPF Stool Occult Blood (NEGATIVE) 12/04/23 Range/Units 19:03 WBC (4.8-10.8) X10*3/uL RBC (4.20-5.50) X10*6/uL Hgb (12.0-16.0) g/dl Hct (37.0-47.0) % MCV (80.0-98.0) fL MCH (27.0-33.0) pg MCHC (31.0-35.0) g/dl RDW (11.0-16.0) % Plt Count (160-400) X10*3/uL MPV (9.4-12.3) fL Immature Gran % (Auto) (0.0-0.4) % Neut % (Auto) (45-73) % Lymph % (Auto) (20-40) % [place] % (Auto) (2-11) % Eos % (Auto) (0-4) % Baso % (Auto) (0-2) % Lymph # (Auto) (1.2-4.9) X10*3/uL [place] # (Auto) (0.1-1.2) X10*3/uL Eos # (Auto) (0.0-0.4) X10*3/uL Baso # (Auto) (0.0-0.2) X10*3/uL Abs Immat Gran (auto) (0.00-0.03) X10*3/uL Absolute Neuts (auto) (2.0-8.3) x10*3/uL Absolute Nucleated RBC (0.0-0.012) X10*3/uL Nucleated RBC % (auto) (0.0-0.2) /100WBC PT (11.1-13.3) SEC INR (0.9-1.1) Sodium (135-145) mmol/L Potassium (3.3-5.1) mmol/L Chloride (96-108) mmol/L Carbon Dioxide (22-29) mmol/L Anion Gap (12-20) BUN (9-16) mg/dL Creatinine (0.5-1.4) mg/dL Estim Creat Clear Calc Estimated GFR Random Glucose (60-115) mg/dL Calcium (8.4-10.2) mg/dL Total Bilirubin (0.0-1.0) mg/dL AST (5-31) U/L ALT (0-31) U/L Alkaline Phosphatase (39-117) U/L Total Protein (6.5-8.0) g/dL Albumin (3.5-5.0) g/dL Beta HCG, Quant mIU/mL Urine Color Urine Appearance Urine pH (5.0-9.0) Ur Specific Lampe (1.005-1.025) Urine Protein (Neg-Trace) mg/dL Urine Glucose (UA) (Negative) mg/dL Urine Ketones (Negative) mg/dL Urine Blood (Negative) Urine Nitrite (Negative) Ur Leukocyte Esterase (Negative) Urine RBC (0-2) /HPF Urine WBC (0-5) /HPF Ur Squamous Epith Cells (0-2) /HPF Urine Bacteria (None Seen) Hyaline Casts (0-2) /LPF Stool Occult Blood POSITIVE (NEGATIVE) Radiology Impression Discussion of test interpretation with radiology: I have reviewed the radiologist's reading. Radiologist Impression: CT/CT gi bleed abd pel wo/w IVcon IMPRESSION: No evidence of active GI bleeding. No acute abdominal or pelvic pathology. Fleischner guidelines were followed. Independent Historian Clinical information obtained from an independent historian. History obtained from or confirmed by: Other (Ex spouse) External Record Review External record reviewed: Outpatient record Critical Care Time Critical Care Time Critical Care Time: Yes Total Critical Care Time: 35 Attestation: I personally attest to this critical care time spent taking care of the patient exclusive of all other billable procedures was approximately 35 minutes including initial evaluation of patient, ordering tests, IV morphine and re-evaluation, medical consultation, documentation, re-evaluation. Discharge Plan Discharge Clinical Impression: Urinary tract infection, Hematochezia Patient Disposition: Home, Self-Care Instructions: Rectal Bleeding (ED), Urinary Tract Infection in Women (ED) Additional Instructions: As discussed, testing today shows that you have a urinary tract infection, please complete the entire course of antibiotics as prescribed. On CT imaging there appears to be no evidence of infection to the kidney stones or kidney stones. Additionally CT scan does not show any obvious cause for the rectal bleeding that you have been experiencing. Your blood counts remain normal despite this bleeding. I do think that it would be best for you to follow-up with your gastroenterology appointment scheduled in 3 days for further evaluation. In the interim I would consider discontinuing your meloxicam as this can result in gastrointestinal bleeding as well. You may return back to emergency department as needed with any new or worsening symptoms or concerns. Prescriptions: New nitrofurantoin monohyd/m-cryst [Macrobid] 100 mg capsule 100 mg PO Q12H 7 Days Qty: 14 0RF Rx Instructions: must administer with a meal/food No Action prazosin 2 mg capsule 2 mg PO BEDTIME dicyclomine 10 mg capsule 10 mg PO BID hydroxyzine HCl 25 mg tablet 25 mg PO BEDTIME meloxicam 15 mg tablet 15 mg PO DAILY omeprazole 20 mg capsule,delayed release(DR/EC) 20 mg PO DAILY tizanidine 2 mg capsule 2 mg PO Q8H PRN methylphenidate HCl [Concerta] 36 mg tablet extended release 24hr 36 mg PO DAILY topiramate 100 mg capsule,extended release 24hr 150 mg PO DAILY prazosin 2 mg capsule 4 mg PO BEDTIME losartan-hydrochlorothiazide 50-12.5 mg tablet 1 tab PO DAILY lorazepam [Ativan] 1 mg tablet 1 mg PO ONCE Qty: 1 0RF Rx Instructions: Take 30 minutes prior to arrival to procedure Referrals: Kelly Benz MD [Primary Care Provider] - Interventions: ED Discharge Assessment Last Done: 12/04/23 21:55 Discharge Date/Time: 12/04/23 21:56 Print Language: Indonesian
[2023-12-04 12:42] VITALS: BP 147/81; PULSE 99; RESP 18; TEMP 36.7; O2SAT 99; BMI 58.4
[2023-12-04 13:22] LABS: Alanine Aminotransferase 22 U/L (0-31); Albumin Level 4.2 g/dL (3.5-5.0); Alkaline Phosphatase 123 U/L (39-117); Anion Gap 14 (12-20); Aspartate Amino Transferase 13 U/L (5-31); Bilirubin Total 0.3 mg/dL (0.0-1.0); Blood Urea Nitrogen 14 mg/dL (9-16); Calcium 9.7 mg/dL (8.4-10.2); Carbon Dioxide 20 mmol/L (22-29); Chloride 110 mmol/L (96-108); Creatinine Clr Calc Pharmacy 112.7; Estimated Glomerular Filt Rate > 60; Glucose Random 132 mg/dL (60-115); Potassium 3.8 mmol/L (3.3-5.1); Sodium 140 mmol/L (135-145); Total Protein 8.1 g/dL (6.5-8.0)
[2023-12-04 13:35] LABS: Basophils Absolute Auto 0.1 X10*3/uL (0.0-0.2); Basophils Percent Auto 0.8 % (0-2); Eosinophils Absolute Auto 0.3 X10*3/uL (0.0-0.4); Eosinophils Percent Auto 2.2 % (0-4); Hematocrit 40.6 % (37.0-47.0); Hemoglobin 13.6 g/dl (12.0-16.0); Imm Gran Abs Auto 0.09 X10*3/uL (0.00-0.03); Imm Gran Pct Auto 0.8 % (0.0-0.4); Lymphocytes Absolute Auto 2.8 X10*3/uL (1.2-4.9); Lymphocytes Percent Auto 24.1 % (20-40); Mean Corpuscular HGB Conc 33.5 g/dl (31.0-35.0); Mean Corpuscular Hemoglobin 28.1 pg (27.0-33.0); Mean Corpuscular Volume 83.9 fL (80.0-98.0); Mean Platelet Volume 9.3 fL (9.4-12.3); Monocytes Absolute Auto 0.7 X10*3/uL (0.1-1.2); Monocytes Percent Auto 5.7 % (2-11); Neutrophils Absolute Auto 7.6 x10*3/uL (2.0-8.3); Neutrophils Percent Auto 66.4 % (45-73); Platelet Count 397 X10*3/uL (160-400); Red Blood Count 4.84 X10*6/uL (4.20-5.50); Red Cell Distribution Width 13.7 % (11.0-16.0); White Blood Count 11.5 X10*3/uL (4.8-10.8)
[2023-12-04 13:40] LABS: INTERNATIONAL NORM RATIO 0.9 (0.9-1.1); Prothrombin Time 11.2 SEC (11.1-13.3)
[2023-12-04 13:55] LABS: MANUAL DIFF FLAG NO
--- NOTE | 2023-12-04 15:20 | PC.NURSE ---
patient arrives through external triage with cc of bleeding from her rectum along with multiple other medical complaints, patient states she also has wounds to her buttocks and groin area this RN went to assess, no wounds appreciated to described areas, patient does have some moisture associated rash noted to buttocks and underwear lining. patient states she has been feeling nauseated and unable to eat or drink much of anything for the last few days. she states she has an appointment with her GI doctor on sunday but felt as if the bleeding was getting worse. patient endorsing generalized abdominal pain to palpation, states she has hx of colitis and diverticulitis among other GI issues that are chronic for her. patient also states she has chronic pain and is unaware whether or not she has had a fever at home, states she does not ambulate well at baseline. patient stating to this RN that she also has some shortness of breath, room air O2 noted to be at 100% on the monitor HR WNL. blood work obtained in triage, this RN placed 18g IV in LAC. awaiting MD seth at this time
--- NOTE | 2023-12-04 16:39 | PC.NURSE ---
patient ambulated with walker to bathroom with steady gait, will obtain urine sample
[2023-12-04 17:01] LABS: Appearance Urine Cloudy; Color Urine Yellow; Glucose Urine UA Negative (Negative); Leukocyte Esterase Urine Moderate (2+) (Negative); Nitrite Urine Positive (Negative); PH 6.5 (5.0-9.0); UMIC TRIGGER UACC YES; Urine Blood Large (3+) (Negative); Urine Ketones Negative (Negative); Urine Protein Negative (Neg-Trace)
[2023-12-04 17:17] LABS: Bacteria Urine 4+ (None Seen); Hyaline Casts Urine 0-2 /LPF (0-2); Squamous Epithelial Cell Urine 0-2 /HPF (0-2); UACC Culture Trigger YES; WBC Urine 21-50 /HPF (0-5)
[2023-12-04 18:02] VITALS: RESP 16; O2SAT 99
[2023-12-04 18:48] VITALS: BP 128/69; PULSE 84; RESP 20; TEMP 36.9; O2SAT 98
--- NOTE | 2023-12-04 18:57 | PC.NURSE ---
Assumed care of pt. Pt devan painting, no acute distress at this time. Pending CT results for disposition.
[2023-12-04] MEDS: 0.9 % Sodium Chloride 1,000 ML 999 ML IV (19:00)
[2023-12-04] MEDS: ondansetron HCL 4 MG/2 ML VIAL IVPUSH (19:00)
[2023-12-04] MEDS: Morphine Sulfate 4 MG/ML CARTRIDGE IVPUSH (19:00)
--- NOTE | 2023-12-04 19:04 | PC.NURSE ---
pt medicated for 8-12/17 abd and rectal pain float nurse
[2023-12-04] MEDS: Nitrofurantoin Monohyd/M-Cryst 100 MG CAPSULE PO (19:11)
[2023-12-04 19:22] LABS: OBS Int Ctl Valid YES; OBS1 POSITIVE (NEGATIVE)
--- NOTE | 2023-12-04 19:34 | PC.NURSE ---
Pt endorsing pain in mid abdomen after receiving macrobid. Provider aware.
[2023-12-04] MEDS: Magnesium Hydrox/Alum Hydrox 30 ML ORAL.SUSP PO (19:50)
[2023-12-04] MEDS: Lidocaine HCl Viscous 2 % 15 ML SOLUTION MUCOUS MEM (19:50)
[2023-12-04 19:57] LABS: HCG Quantitative < 2 mIU/mL
[2023-12-04] MEDS: iohexoL 350 MG/ML 100 ML INFUS..BTL IV (20:42)
[2023-12-04 21:06] VITALS: BP 125/73; PULSE 99; RESP 20; TEMP 37; O2SAT 97
[2023-12-04 21:55] VITALS: BP 125/73; PULSE 99; RESP 20; TEMP 37; O2SAT 97
== END 2023-12-04 21:56 | disposition home or self-care (01) ==
PROVIDERS: Nurse Practitioner Family; Physician Assistant; Emergency Provider Internal Medicine; PCP Internal Medicine
DX: K92.1 Melena (principal); N39.0 Urinary tract infection, site not specified; R06.02 Shortness of breath; R42 Dizziness and giddiness; R11.0 Nausea; R10.2 Pelvic and perineal pain; Z79.899 Other long term (current) drug therapy; Z87.891 Personal history of nicotine dependence
CPT/HCPCS: 36415; 74178; 80053; 81001; 82272; 84702; 85025; 85610; 87086; 87088; 87186; 96361; 96374; 96375; 99284; J2270; J2405; Q9967

== ENCOUNTER 2023-12-07 15:47 | Outpatient (AMB) | payer OTHER, SELFPAY ==
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
[2023-12-07 15:53] VITALS: BP 122/81; PULSE 127; BMI 57.9
== END 2023-12-07 16:18 | disposition home or self-care (01) ==
PROVIDERS: PCP Internal Medicine; Visit Provider Internal Medicine
DX: K62.5 Hemorrhage of anus and rectum (principal); R10.9 Unspecified abdominal pain; K21.9 Gastro-esophageal reflux disease without esophagitis
CPT/HCPCS: 99204

== ENCOUNTER → 2023-12-07 15:47 | Outpatient (BNVA) | payer OTHER, SELFPAY | PROVIDERS: PCP Internal Medicine; Visit Provider Internal Medicine | DX: K58.1 Irritable bowel syndrome with constipation (principal); K58.0 Irritable bowel syndrome with diarrhea; K62.5 Hemorrhage of anus and rectum; K21.9 Gastro-esophageal reflux disease without esophagitis; R10.9 Unspecified abdominal pain | CPT/HCPCS: 99202 ==

== ENCOUNTER 2023-12-13 11:36 | Outpatient (REF) | payer OTHER, SELFPAY ==
[2023-12-13 13:31] LABS: C Reactive Protein 3.44 mg/dL (< or = 0.50)
[2023-12-14 10:43] LABS: HIV AB/AG Nonreactive (Nonreactive); HIV Num 1 0.04 S/CO (0.00-0.99)
[2023-12-14 11:49] LABS: Immunoglobulin A 348 mg/dL (47-310)
[2023-12-14 20:52] LABS: Transglutaminase IgA <1.0 U/mL
== END 2023-12-13 11:37 | disposition home or self-care (01) ==
LOC: HO.10HDL 11:36
PROVIDERS: Visit Provider Internal Medicine
DX: Z11.4 Encounter for screening for human immunodeficiency virus [HIV] (principal); R10.9 Unspecified abdominal pain; K62.5 Hemorrhage of anus and rectum
CPT/HCPCS: 36415; 82784; 84443; 86140; 86364; 87389

== ENCOUNTER 2023-12-24 12:24 | Outpatient (REF) | payer OTHER, SELFPAY ==
[2023-12-31 17:24] LABS: Calprotectin, Fecal 210 mcg/g
== END 2023-12-24 12:25 | disposition home or self-care (01) ==
LOC: HO.10HDLNP 12:24
PROVIDERS: Visit Provider Internal Medicine
DX: R10.9 Unspecified abdominal pain (principal); K62.5 Hemorrhage of anus and rectum
CPT/HCPCS: 83993

== ENCOUNTER 2024-01-16 12:48 | Emergency (ER) | payer OTHER, SELFPAY ==
--- NOTE | ~2024-01-16 | US_ITS ---
EXAMINATION: US PELVIS CLINICAL INFORMATION: Rule out ovarian torsion. Left lower quadrant pain. COMPARISON: None available. TECHNIQUE: Ultrasound of the pelvis is performed using both transabdominal and transvaginal transducers along with Doppler. Transvaginal imaging is performed due to inadequate visualization transabdominally. FINDINGS: Uterus: The uterus measures 9.8 cm x 2.97 x 3.9 cm and is anteverted and anteflexed. The endometrial echocomplex measures 3 mm, within normal limits in size. No abnormal endometrial cavity fluid collections noted. The ovaries are only visualized via transabdominal imaging. The right ovary measures 2.7 cm x 1.87 x 2.0 cm. The left ovary measures 2.2 cm x 1.6 cm x 2.2 cm. The ovaries are normal in appearance. Bilateral low resistive arterial and venous spectral waveforms are noted within the ovaries. Left ovary contains a 1 cm diameter rounded hypoechoic region likely representing a normal ovarian cyst which warrants no additional imaging follow-up on the basis of this examination. Trace anechoic physiologic appearing free intraperitoneal fluid is present in the pelvic cul-de-sac. US/US pelvic and transvaginal IMPRESSION: Normal pelvic ultrasound. Of note, the ovaries are only visualized via transabdominal imaging. Normal bilateral low resistive arterial and venous waveforms are noted in the ovaries. No evidence of ovarian torsion. The ovaries are not visualized on endovaginal examination, possibly related to body habitus and overlying bowel gas. The electromechanical technologist note. Electronically signed by: Harjinder Nolasco MD 01/17/2024 02:44 AM EDT
--- NOTE | ~2024-01-16 | US_ITS ---
EXAMINATION: US PELVIS CLINICAL INFORMATION: Rule out ovarian torsion. Left lower quadrant pain. COMPARISON: None available. TECHNIQUE: Ultrasound of the pelvis is performed using both transabdominal and transvaginal transducers along with Doppler. Transvaginal imaging is performed due to inadequate visualization transabdominally. FINDINGS: Uterus: The uterus measures 9.8 cm x 2.97 x 3.9 cm and is anteverted and anteflexed. The endometrial echocomplex measures 3 mm, within normal limits in size. No abnormal endometrial cavity fluid collections noted. The ovaries are only visualized via transabdominal imaging. The right ovary measures 2.7 cm x 1.87 x 2.0 cm. The left ovary measures 2.2 cm x 1.6 cm x 2.2 cm. The ovaries are normal in appearance. Bilateral low resistive arterial and venous spectral waveforms are noted within the ovaries. Left ovary contains a 1 cm diameter rounded hypoechoic region likely representing a normal ovarian cyst which warrants no additional imaging follow-up on the basis of this examination. Trace anechoic physiologic appearing free intraperitoneal fluid is present in the pelvic cul-de-sac. US/US pelvic ovarian doppler IMPRESSION: Normal pelvic ultrasound. Of note, the ovaries are only visualized via transabdominal imaging. Normal bilateral low resistive arterial and venous waveforms are noted in the ovaries. No evidence of ovarian torsion. The ovaries are not visualized on endovaginal examination, possibly related to body habitus and overlying bowel gas. The instrumentation technologist note. Electronically signed by: Harjinder Nolasco MD 01/17/2024 02:44 AM EDT
--- NOTE | ~2024-01-16 | CT_ITS ---
EXAMINATION: CT ABDOMEN AND PELVIS WITH CONTRAST CLINICAL INFORMATION: Left lower quadrant abdominal pain COMPARISON: CT angiogram of the study abdomen pelvis August 04, 2023 TECHNIQUE: Multidetector volumetric images were obtained from the superior aspect of the liver through the pubic symphysis following administration 85 mL of Omnipaque 350 intravenous contrast. Sagittal and coronal reformatted images were obtained on the technologist's workstation. Oral contrast: No This CT examination was performed using dose optimization techniques as appropriate, variously including the following: *Automated exposure control *Adjustment of mA and/or kV according to patient size (this includes techniques or standardized protocols for targeted exams where dose is matched to indication/reason for exam; i.e. extremities or head) *Use of iterative reconstruction technique DLP: 1285 mGy-cm FINDINGS: LUNG BASES: The visualized lung bases are unremarkable. LIVER, GALLBLADDER, AND BILIARY TREE: The liver is normal in size, shape, and attenuation. No focal hepatic lesion or biliary ductal dilatation is present. Status post cholecystectomy. PANCREAS: Unremarkable. SPLEEN: Unremarkable. ADRENAL GLANDS: Unremarkable. KIDNEYS AND URETERS: The kidneys are normal in size, shape, and attenuation. No hydronephrosis, hydroureter, or calculi seen. No perinephric stranding. BLADDER: Unremarkable. GASTROINTESTINAL TRACT: The small and large bowel are unremarkable. Status post appendectomy. ABDOMINAL WALL: No significant hernia is appreciated. LYMPH NODES: Normal. VASCULAR: Unremarkable. PELVIC VISCERA: Unremarkable. OSSEOUS STRUCTURES: Unremarkable. CT/CT abdomen pelvis w IV con IMPRESSION: No acute abnormality CT scan abdomen pelvis. Fleischner guidelines were followed. Electronically signed by: Jacques Villa MD 01/16/2024 10:22 PM EDT
--- NOTE | ~2024-01-16 | XR_ITS ---
EXAMINATION: XR CHEST CLINICAL INFORMATION: Seizure COMPARISON: None available. TECHNIQUE: Frontal view of the chest was obtained. FINDINGS: No significant abnormality is noted involving the heart, lungs, mediastinum, bony thorax or soft tissues. XR/XR chest 1V IMPRESSION: Unremarkable chest exam Electronically signed by: Vishnu Oakley MD 01/16/2024 10:43 PM EDT RP
[2024-01-16 13:50] VITALS: BP 119/81; PULSE 116; RESP 16; TEMP 36.3; O2SAT 95; BMI 59.3
--- NOTE | 2024-01-16 13:53 | ED_ITS ---
HPI - General Adult General Chief complaint: Abdominal Pain Stated complaint: abd pain Time Seen by Provider: 01/16/24 19:22 History of Present Illness ED Provider: Mary Carmen SALAZAR narrative: 33-year-old female with past medical history of colitis presenting for 2 weeks of left lower quadrant abdominal pain. Patient states that she spoke to her outpatient provider who recommended she come into the emergency department for CT scan in setting of worsening left lower quadrant abdominal pain. Patient endorses nausea however denies vomiting, dysuria, hematuria, vaginal discharge. Patient states the pain radiates from her left lower quadrant to her lower back. She denies fevers and chills. She has no chest pain or shortness of. Related Data Home Medications ?Medication ?Instructions ?Recorded ?Confirmed hydroxyzine HCl 25 mg tablet 25 mg PO BEDTIME 06/01/23 methylphenidate HCl 36 mg 36 mg PO DAILY 06/01/23 tablet,extended release 24 hr (Concerta) omeprazole 20 mg capsule,delayed 20 mg PO DAILY 06/01/23 release prazosin 2 mg capsule 4 mg PO BEDTIME 07/02/23 buspirone 5 mg tablet 5 mg PO DAILY 12/07/23 losartan 100 1 tab PO DAILY 12/07/23 mg-hydrochlorothiazide 12.5 mg tablet prazosin 1 mg capsule 1 mg PO BEDTIME 12/07/23 topiramate 100 mg tablet 100 mg PO DAILY 12/07/23 topiramate 50 mg tablet 50 mg PO DAILY 12/07/23 Previous Rx's ?Medication ?Instructions ?Recorded nitrofurantoin 100 mg PO Q12H 7 days #14 caps 12/04/23 monohydrate/macrocrystals 100 mg capsule (Macrobid) hydrocortisone 2.5 % topical cream 1 appl [place] BEDTIME PRN hemorrhoids 12/07/23 with perineal applicator #30 grams (Anusol-HC) peg 3350-electrolytes 236 240 ml PO Q10M colonoscopy #4,000 12/07/23 gram-22.74 gram-6.74 gram-5.86 mL gram solution (Golytely) Allergies Allergy/AdvReac Type Severity Reaction Status Date / Time bee pollen [bee stings] Allergy Anaphylaxis Verified 01/16/24 13:53 cariprazine [From Vraylar] Allergy lip Verified 01/16/24 13:53 swelling ceftriaxone [From Rocephin] Allergy Anaphylaxis Verified 01/16/24 13:53 strawberry Allergy Anaphylaxis Verified 01/16/24 13:53 Review of Systems 2 Review of Systems: Patient endorses left lower quadrant abdominal pain and nausea Patient denies chest pain, shortness of breath, fevers, chills, dysuria, hematuria, diarrhea Yes all other systems are reviewed and are negative [facility] Past Medical History Attestation statement: The following information was validated with the patient. 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 Physical Exam ED Vital Signs: Vital Signs - 24 hr 01/16/24 13:50 01/16/24 21:15 01/16/24 23:09 Temperature 97.3 F 98.2 F 98.1 F Pulse Rate 116 H 89 93 Respiratory Rate 16 16 18 Blood Pressure 119/81 122/83 113/53 L Pulse Oximetry 95 100 99 Oxygen Delivery Method Room Air Room Air Room Air 01/17/24 01:40 01/17/24 03:19 Temperature 97.9 F 97.9 F Pulse Rate 85 85 Respiratory Rate 18 18 Blood Pressure 98/57 L 98/57 L Pulse Oximetry 98 98 Oxygen Delivery Method Room Air Room Air BMI result Body Mass Index 59.3 Left lower quadrant abdominal tenderness to palpation; left CVA tenderness to palpate; abdomen soft nondistended; no skin changes appreciated Lungs clear to auscultation bilaterally; normal S1-S2 regular rate and Head normocephalic and atraumatic Course Course Course Narrative: RME: done by VERÓNICA Herring. 33-year-old female presents to ED for left lower quadrant suprapubic pain for 2 weeks. Patient states history of colitis. Labs UA ordered. Positive for left lower quadrant tenderness on palpation. Medications Administered Discontinued Medications Generic Name Dose Route Start Last Admin Trade Name Freq PRN Reason Stop Dose Admin Iohexol 100 ml 10/09/24 21:18 01/16/24 21:18 Iohexol 350 Mg/Ml 100 Ml Infus..Btl IV 01/16/24 21:19 100 ml ONCE ONE Administration Morphine Sulfate 4 mg 01/16/24 20:54 01/16/24 21:17 Morphine Sulfate 4 Mg/Ml Cartridge IVPUSH 01/16/24 20:55 4 mg ONCE ONE Administration Protocol Medical Decision Making Medical Decision Making [facility] [place] Narrative: This is a 33 year old female presenting with left lower quadrant pain. I am concerned for the following; nephrolithiasis, colitis, constipation, ovarian cyst, diverticulitis This is less likely an ectopic or ovarian torsion given duration of symptoms. I am not concerned for biliary disease given location of patient's pain Labs and imaging studies ordered Patient has a mild leukocytosis, H and H stable mildly elevated LFT UA and imaging studies pending If patient has no unusual findings on CT scan she should have a transvaginal ultrasound; I discussed this with the night provider Patient is signed out to night provider -I received sign-out from my colleague Dr. Lentz -the CT scan did not show any acute abnormality -ultrasound negative for prolapse. Patient likely having musculoskeletal pain. Patient ready for discharge. -patient resting comfortably, vitals stable -on discharge physical exam, patient seems more comfortable. -lactic acid noted to be 2.1. Patient has no source of infection, has not been dehydrated. Nonspecific. Sepsis not suspected. Differential Diagnosis Differential Diagnoses: The differential diagnosis associated with the presentation includes Colitis, nephrolithiasis, ovarian cyst/ruptured cyst, diverticulitis Lab Data [facility] [place] Lab Attestation statement: I reviewed the patient's lab results. 01/16/24 15:10 01/16/24 15:10 Labs: Lab Results 01/16/24 01/16/24 01/17/24 Range/Units 15:10 21:20 01:35 WBC 13.2 H (4.8-10.8) X10*3/uL RBC 4.87 (4.20-5.50) X10*6/uL Hgb 13.8 (12.0-16.0) g/dl Hct 40.6 (37.0-47.0) % MCV 83.4 (80.0-98.0) fL MCH 28.3 (27.0-33.0) pg MCHC 34.0 (31.0-35.0) g/dl RDW 14.6 (11.0-16.0) % Plt Count 404 H (160-400) X10*3/uL MPV 9.9 (9.4-12.3) fL Immature Gran % (Auto) 0.8 H (0.0-0.4) % Neut % (Auto) 63.4 (45-73) % Lymph % (Auto) 28.0 (20-40) % Cherry % (Auto) 5.3 (2-11) % Eos % (Auto) 1.7 (0-4) % Baso % (Auto) 0.8 (0-2) % Lymph # (Auto) 3.7 (1.2-4.9) X10*3/uL Cherry # (Auto) 0.7 (0.1-1.2) X10*3/uL Eos # (Auto) 0.2 (0.0-0.4) X10*3/uL Baso # (Auto) 0.1 (0.0-0.2) X10*3/uL Abs Immat Gran (auto) 0.11 H (0.00-0.03) X10*3/uL Absolute Neuts (auto) 8.4 H (2.0-8.3) x10*3/uL Absolute Nucleated RBC 0.000 (0.0-0.012) X10*3/uL Nucleated RBC % (auto) 0.0 (0.0-0.2) /100WBC PT 11.3 (10.9-12.4) SEC INR 1.0 (0.9-1.1) APTT 29.7 (26.0-36.8) SEC Sodium 140 (135-145) mmol/L Potassium 3.7 (3.3-5.1) mmol/L Chloride 107 (96-108) mmol/L Carbon Dioxide 23 (22-29) mmol/L Anion Gap 14 (12-20) BUN 10 (9-16) mg/dL Creatinine 0.86 (0.5-1.4) mg/dL Estim Creat Clear Calc 125.7 Estimated GFR > 60 Random Glucose 121 H (60-115) mg/dL Lactic Acid 2.1 H* (0.5-2.0) mmol/L Calcium 9.7 (8.4-10.2) mg/dL Total Bilirubin 0.5 (0.0-1.0) mg/dL AST 20 (5-31) U/L ALT 39 H (0-31) U/L Alkaline Phosphatase 118 H (39-117) U/L Total Protein 8.1 H (6.5-8.0) g/dL Albumin 4.2 (3.5-5.0) g/dL Lipase 13 (8-78) U/L Beta HCG, Quant < 2 mIU/mL Urine Color Yellow Urine Appearance Clear Urine pH 6.5 (5.0-9.0) Ur Specific [place] >= 1.030 H (1.005-1.025) Urine Protein Trace (Neg-Trace) mg/dL Urine Glucose (UA) Negative (Negative) mg/dL Urine Ketones Negative (Negative) mg/dL Urine Blood Negative (Negative) Urine Nitrite Negative (Negative) Ur Leukocyte Esterase Negative (Negative) Independent Interpretation I performed an independent interpretation of an: Ultrasound and CT Scan Radiology Impression Discussion of test interpretation with radiology: I have reviewed the radiologist's reading. Radiologist Impression: Uterus: The uterus measures 9.8 cm x 2.97 x 3.9 cm and is anteverted and anteflexed. The endometrial echocomplex measures 3 mm, within normal limits in size. No abnormal endometrial cavity fluid collections noted. The ovaries are only visualized via transabdominal imaging. The right ovary measures 2.7 cm x 1.87 x 2.0 cm. The left ovary measures 2.2 cm x 1.6 cm x 2.2 cm. The ovaries are normal in appearance. Bilateral low resistive arterial and venous spectral waveforms are noted within the ovaries. Left ovary contains a 1 cm diameter rounded hypoechoic region likely representing a normal ovarian cyst which warrants no additional imaging follow-up on the basis of this examination. Trace anechoic physiologic appearing free intraperitoneal fluid is present in the pelvic cul-de-sac. US/US pelvic and transvaginal IMPRESSION: Normal pelvic ultrasound. Of note, the ovaries are only visualized via transabdominal imaging. Normal bilateral low resistive arterial and venous waveforms are noted in the ovaries. No evidence of ovarian torsion. The ovaries are not visualized on endovaginal examination, possibly related to body habitus and overlying bowel gas. The public health technologist note LUNG BASES: The visualized lung bases are unremarkable. LIVER, GALLBLADDER, AND BILIARY TREE: The liver is normal in size, shape, and attenuation. No focal hepatic lesion or biliary ductal dilatation is present. Status post cholecystectomy. PANCREAS: Unremarkable. SPLEEN: Unremarkable. ADRENAL GLANDS: Unremarkable. KIDNEYS AND URETERS: The kidneys are normal in size, shape, and attenuation. No hydronephrosis, hydroureter, or calculi seen. No perinephric stranding. BLADDER: Unremarkable. GASTROINTESTINAL TRACT: The small and large bowel are unremarkable. Status post appendectomy. ABDOMINAL WALL: No significant hernia is appreciated. LYMPH NODES: Normal. VASCULAR: Unremarkable. PELVIC VISCERA: Unremarkable. OSSEOUS STRUCTURES: Unremarkable. CT/CT abdomen pelvis w IV con IMPRESSION: No acute abnormality CT scan abdomen pelvis. Fleischner guidelines were followed. Critical Care Time Critical Care Time Critical Care Time: Yes Total Critical Care Time: 60 Attestation: I have personally provided critical care time. Time includes review of lab data, radiology results, discussion with consultants, and monitoring for potential decompensation. Intervention performed as documented. Discharge Plan Discharge Clinical Impression: Abdominal pain, left lower quadrant Patient Disposition: Home, Self-Care Instructions: Abdominal Pain (ED) Additional Instructions: Please follow-up with your primary care physician tomorrow. If you have any worsening or new symptoms, please return to the emergency room or call 911 Prescriptions: No Action nitrofurantoin monohyd/m-cryst [Macrobid] 100 mg capsule 100 mg PO Q12H 7 Days Qty: 14 0RF Rx Instructions: must administer with a meal/food hydroxyzine HCl 25 mg tablet 25 mg PO BEDTIME omeprazole 20 mg capsule,delayed release(DR/EC) 20 mg PO DAILY methylphenidate HCl [Concerta] 36 mg tablet extended release 24hr 36 mg PO DAILY prazosin 2 mg capsule 4 mg PO BEDTIME losartan-hydrochlorothiazide 100-12.5 mg tablet 1 tab PO DAILY topiramate 50 mg tablet 50 mg PO DAILY topiramate 100 mg tablet 100 mg PO DAILY buspirone 5 mg tablet 5 mg PO DAILY prazosin 1 mg capsule 1 mg PO BEDTIME peg 3350-electrolytes [Golytely] 236-22.74-6.74 -5.86 gram recon soln 240 ml PO Q10M Qty: 4000 0RF Rx Instructions: as per split prep instructions, until fecal effluent is clear hydrocortisone [Anusol-HC] 2.5 % cream with perineal applicator 1 appl [place] BEDTIME PRN (Reason: hemorrhoids) Qty: 30 0RF Interventions: ED Discharge Assessment Last Done: 01/17/24 03:19 Discharge Date/Time: 01/17/24 03:20 Print Language: Filipino
[2024-01-16 15:15] LABS: MANUAL DIFF FLAG NO
[2024-01-16 15:18] LABS: Basophils Absolute Auto 0.1 X10*3/uL (0.0-0.2); Basophils Percent Auto 0.8 % (0-2); Eosinophils Absolute Auto 0.2 X10*3/uL (0.0-0.4); Eosinophils Percent Auto 1.7 % (0-4); Hematocrit 40.6 % (37.0-47.0); Hemoglobin 13.8 g/dl (12.0-16.0); Imm Gran Abs Auto 0.11 X10*3/uL (0.00-0.03); Imm Gran Pct Auto 0.8 % (0.0-0.4); Lymphocytes Absolute Auto 3.7 X10*3/uL (1.2-4.9); Mean Corpuscular Hemoglobin 28.3 pg (27.0-33.0); Mean Corpuscular Volume 83.4 fL (80.0-98.0); Mean Platelet Volume 9.9 fL (9.4-12.3); Monocytes Absolute Auto 0.7 X10*3/uL (0.1-1.2); Monocytes Percent Auto 5.3 % (2-11); Neutrophils Absolute Auto 8.4 x10*3/uL (2.0-8.3); Neutrophils Percent Auto 63.4 % (45-73); Platelet Count 404 X10*3/uL (160-400); Red Blood Count 4.87 X10*6/uL (4.20-5.50); Red Cell Distribution Width 14.6 % (11.0-16.0); White Blood Count 13.2 X10*3/uL (4.8-10.8)
[2024-01-16 15:23] LABS: Prothrombin Time 11.3 SEC (10.9-12.4)
[2024-01-16 15:26] LABS: Partial Thromboplastin Time 29.7 SEC (26.0-36.8)
[2024-01-16 15:43] LABS: Alanine Aminotransferase 39 U/L (0-31); Albumin Level 4.2 g/dL (3.5-5.0); Alkaline Phosphatase 118 U/L (39-117); Anion Gap 14 (12-20); Aspartate Amino Transferase 20 U/L (5-31); Bilirubin Total 0.5 mg/dL (0.0-1.0); Blood Urea Nitrogen 10 mg/dL (9-16); Calcium 9.7 mg/dL (8.4-10.2); Carbon Dioxide 23 mmol/L (22-29); Chloride 107 mmol/L (96-108); Creatinine Clr Calc Pharmacy 125.7; Estimated Glomerular Filt Rate > 60; Glucose Random 121 mg/dL (60-115); Lipase 13 U/L (8-78); Potassium 3.7 mmol/L (3.3-5.1); Sodium 140 mmol/L (135-145); Total Protein 8.1 g/dL (6.5-8.0)
[2024-01-16 15:46] LABS: HCG Quantitative < 2 mIU/mL
[2024-01-16 21:15] VITALS: BP 122/83; PULSE 89; RESP 16; TEMP 36.8; O2SAT 100
[2024-01-16] MEDS: Morphine Sulfate 4 MG/ML CARTRIDGE IVPUSH (21:17)
[2024-01-16] MEDS: iohexoL 350 MG/ML 100 ML INFUS..BTL IV (21:18)
[2024-01-16 21:43] LABS: Lactic Acid 2.1 mmol/L (0.5-2.0)
[2024-01-16 23:09] VITALS: BP 113/53; PULSE 93; RESP 18; TEMP 36.7; O2SAT 99
[2024-01-16 23:26] LABS: Reflex Lactate? Lactic Acid Added
--- NOTE | 2024-01-16 23:35 | PC.NURSE ---
repeat lactic cancelled per MD Ceron.
[2024-01-17 01:40] VITALS: BP 98/57; PULSE 85; RESP 18; TEMP 36.6; O2SAT 98
[2024-01-17 01:43] LABS: Appearance Urine Clear; Color Urine Yellow; Glucose Urine UA Negative (Negative); Leukocyte Esterase Urine Negative (Negative); Nitrite Urine Negative (Negative); PH 6.5 (5.0-9.0); Specific Gravity - Urine >= 1.030 (1.005-1.025); Urine Blood Negative (Negative); Urine Ketones Negative (Negative); Urine Protein Trace mg/dL (Neg-Trace)
[2024-01-17 03:19] VITALS: BP 98/57; PULSE 85; RESP 18; TEMP 36.6; O2SAT 98
== END 2024-01-17 03:20 | disposition home or self-care (01) ==
PROVIDERS: Physician Assistant; Student in an Organized Health Care Education/Training Program; Emergency Provider Emergency Medicine; PCP Internal Medicine
DX: R10.32 Left lower quadrant pain (principal)
CPT/HCPCS: 36415; 71045; 74177; 76830; 76856; 80053; 81003; 83605; 83690; 84702; 85025; 85610; 85730; 93975; 96374; 99284; J2270; Q9967

== ENCOUNTER 2024-03-25 07:02 | Day surgery (SDC) | payer OTHER, SELFPAY ==
[2024-03-21 07:20] VITALS: BMI 57.8
--- NOTE | 2024-03-24 10:51 | HO.ANESPROP2 ---
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) Cervicalgia (Acute) Low back pain (Acute) Cervical radiculopathy (Acute) Numbness and tingling in right hand (Acute) Contusion of right thigh (Acute) Lumbar radiculopathy (Acute) Cubital tunnel syndrome on right (Acute) Internal derangement of right shoulder (Acute) Surgical History Surgical History Hx of colonoscopy History of esophagogastroduodenoscopy (EGD) Social History Social History Patient Tobacco Use Status: Former Tobacco user Use of substances other than those prescribed or required for medical reasons: Yes Substance Use Type Other:: last used 03/24/24 Are you DNR?: No Advance Directives: No Advance Directives Information Provided: Yes Current occupational status: disabled 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 Allergies Allergy/AdvReac Type Severity Reaction Status Date / Time bee pollen [bee stings] Allergy Anaphylaxis Verified 03/25/24 07:59 cariprazine [From Vraylar] Allergy lip Verified 03/25/24 07:59 swelling ceftriaxone [From Rocephin] Allergy Anaphylaxis Verified 03/25/24 07:59 strawberry Allergy Anaphylaxis Verified 03/25/24 07:59 Home Medications ?Medication ?Instructions ?Recorded ?Confirmed ?Last Taken ?Type hydroxyzine HCl 25 mg tablet 25 mg PO BEDTIME 06/01/23 03/25/24 Unknown History methylphenidate HCl 36 mg 36 mg PO DAILY 06/01/23 03/25/24 Unknown History tablet,extended release 24 hr (Concerta) omeprazole 20 mg capsule,delayed 20 mg PO DAILY 06/01/23 03/25/24 Unknown History release prazosin 2 mg capsule 4 mg PO BEDTIME 07/02/23 03/25/24 Unknown History buspirone 5 mg tablet 5 mg PO DAILY 12/07/23 03/25/24 Unknown History losartan 100 1 tab PO DAILY 12/07/23 03/25/24 Unknown History mg-hydrochlorothiazide 12.5 mg tablet prazosin 1 mg capsule 1 mg PO BEDTIME 12/07/23 03/25/24 Unknown History topiramate 100 mg tablet 100 mg PO DAILY 12/07/23 03/25/24 Unknown History topiramate 50 mg tablet 50 mg PO DAILY 12/07/23 03/25/24 Unknown History Exam Height,Weight and Vital Signs: Height 5 ft 1 in Weight 138.799 kg Assessment and Plan Assessment Anesthesia Assessment: Chart Reviewed Documented by User: Malka Motley MD 03/25/24 08:47 PMFSH Family History Family history of problems with anesthesia: No Surgical History Surgical History Hx of colonoscopy History of esophagogastroduodenoscopy (EGD) History of Problems with Anesthesia: No Social History Social History Patient Tobacco Use Status: Former Tobacco user Use of substances other than those prescribed or required for medical reasons: Yes Substance Use Type Other:: last used 03/24/24 Are you DNR?: No Advance Directives: No Advance Directives Information Provided: Yes Current occupational status: disabled 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 Allergies Allergy/AdvReac Type Severity Reaction Status Date / Time bee pollen [bee stings] Allergy Anaphylaxis Verified 03/25/24 07:59 cariprazine [From Vraylar] Allergy lip Verified 03/25/24 07:59 swelling ceftriaxone [From Rocephin] Allergy Anaphylaxis Verified 03/25/24 07:59 strawberry Allergy Anaphylaxis Verified 03/25/24 07:59 Home Medications ?Medication ?Instructions ?Recorded ?Confirmed ?Last Taken ?Type hydroxyzine HCl 25 mg tablet 25 mg PO BEDTIME 06/01/23 03/25/24 Unknown History methylphenidate HCl 36 mg 36 mg PO DAILY 06/01/23 03/25/24 Unknown History tablet,extended release 24 hr (Concerta) omeprazole 20 mg capsule,delayed 20 mg PO DAILY 06/01/23 03/25/24 Unknown History release prazosin 2 mg capsule 4 mg PO BEDTIME 07/02/23 03/25/24 Unknown History buspirone 5 mg tablet 5 mg PO DAILY 12/07/23 03/25/24 Unknown History losartan 100 1 tab PO DAILY 12/07/23 03/25/24 Unknown History mg-hydrochlorothiazide 12.5 mg tablet prazosin 1 mg capsule 1 mg PO BEDTIME 12/07/23 03/25/24 Unknown History topiramate 100 mg tablet 100 mg PO DAILY 12/07/23 03/25/24 Unknown History topiramate 50 mg tablet 50 mg PO DAILY 12/07/23 03/25/24 Unknown History Exam Airway Mallampati Class: IV TM Dist: <=3cm Neck ROM: Limited Heart: rrr Lungs: cta Assessment and Plan Assessment Anesthesia Assessment: Anesthesia Plan Discussed Final Anesthetic Review Family History of Problems with Anesthesia: No History of Problems with Anesthesia: No NPO: Yes ASA Class: III Final Preanesthetic Review: No Changes in Pt Med Stat, Meds/Allgs Chart Reviewed, Consent Obtained/Reviewed and Anes Risks/Benef Reviewed Patient Risk: Intermediate Procedure Risk: Low Anesthetic Plan Anesthetic Plan: MAC: Disposition: Standard PACU
--- NOTE | 2024-03-25 08:01 | MHC.SHP ---
Pre-Procedural Eval Section A - 24 Hr Update-Section A only Date of Service: 03/25/24 Section B - Complete if H&P > 30 days Chief Complaint: Unspecified abdominal pain Details of Present Illness: Hx of colonoscopy History of esophagogastroduodenoscopy (EGD) Present Medications: see Short Stay Collaborative assessment Allergies: Allergies Allergy/AdvReac Type Severity Reaction Status Date / Time bee pollen [bee stings] Allergy Anaphylaxis Verified 03/25/24 07:59 cariprazine [From Vraylar] Allergy lip Verified 03/25/24 07:59 swelling ceftriaxone [From Rocephin] Allergy Anaphylaxis Verified 03/25/24 07:59 strawberry Allergy Anaphylaxis Verified 03/25/24 07:59 Review of Systems Review of Systems Comment: Ten point ROS negative Exam Exam Comment: Gen appear: No acute distress HEENT: no icterus Chest: No overt resp distress Abd: soft, nontender, nondistended Psych: Stable affect, answering questions appropriately Neuro: A/Ox3 noted to move all extremities spontaneously Ext: no peripheral edema Plan Diagnosis/Plan: Unchanged I have reviewed the history and physical and performed a pertinent physical examination on my patient. No changes have occurred unless specified. Time Spent With Patient Time: Total time managing care of this patient today ____ minutes.
[2024-03-25 08:15] LABS: UPreg QC Valid YES; Urine Pregnancy NEGATIVE (NEGATIVE)
[2024-03-25 08:16] VITALS: BP 143/81; PULSE 90; RESP 16; TEMP 36.2; O2SAT 96; BMI 58.2
[2024-03-25] MEDS: Lactated Ringers 1,000 ML 100 ML IVCONT (08:36)
--- NOTE | 2024-03-25 08:44 | HO.OPN-COLON ---
Colonoscopy Operative Note Operative Note Date of Service: 03/25/24 Narrative: Procedure: Upper endoscopy and colonoscopy Indication: Abd pain, rectal bleeding Endoscopist: Joy Wong MD Anesthesia Provider: Mickey Damon CRNA Anesthesia type: MAC Instrument: [id number] and [id number] EGD Procedure:?? The procedure, indications, preparation and potential complications were reviewed with the patient, who indicated understanding and gave written informed consent to proceed. The endoscope was introduced through the mouth, and advanced to the 2nd part of the duodenum. The mucosa was carefully examined on slow withdrawal of the endoscope. The patient tolerated the procedure well. There were no immediate complications.? EGD Findings:? Esophagus:?The Z-line was at 32 cm and displaced by a hiatal hernia with the diaphragmatic hiatus at 35 cm. There was diffuse ulceration and friability with spontaneous oozing noted from the 32 cm to 30 cm. Cold forceps biopsies were taken from middle and lower esophagus to rule out eosinophilic esophagitis. Stomach:? Erythema and erosions in the antrum. Retroflexion was performed in the cardia that showed Hill grade 2 hiatal hernia. A few scattered polyps were noted in the body of the stomach. Cold forceps biopsy was taken from a field representative/health education polyp. Random cold forceps biopsies were also taken from the stomach. Duodenum:? Normal duodenal mucosa. Cold forceps biopsies were taken from the duodenal bulb and 2nd portion of the duodenum to rule out celiac sprue. Colonoscopy Procedure:? The patient was then turned for the colonoscopy. A digital rectal exam was performed which was abnormal for external hemorrhoids.? A distal attachment cap was affixed to the tip of the scope and the colonoscope was then inserted through the anus and advanced through the colon and advanced to the cecum at 75 cm and terminal ileum.? Appendiceal orifice and ileocecal valve were identified. Mucosa was carefully examined under high definition white light as the instrument was slowly withdrawn in a retrograde panoramic fashion. Retroflexion was performed in rectum. The procedure was not difficult. The quality of the prep was BBPS: 2+2+3 = adequate Withdrawal time 6 minutes Limitations: No limitations Findings: Mucosa: Normal colon and terminal ileum mucosa. Cold forceps biopsies were taken from the right and left side of the colon to rule out microscopic colitis. Protruding lesions: Large internal hemorrhoids with stigmata of recent bleeding. Impression: 1. Grade D esophagitis 2. Hiatal hernia 3. Gastritis (biopsy) 4. Gastric polyps 5. Normal duodenum (biopsy) 6. Normal colon and terminal ileum mucosa (biopsy) 7. Internal and external hemorrhoids Recommendations:?? Follow-up path results Avoid NSAIDs Start omeprazole 20 mg b.i.d. for 8 weeks and then reduce to once daily Anusol suppositories x 10-12 days Fiber intake Repeat upper endoscopy will be set up in a few weeks to ensure healing Asymptomatic colorectal cancer screening to be resumed at 45 years of age
[2024-03-25 09:34] VITALS: BP 134/84; PULSE 109; RESP 16; TEMP 37.2; O2SAT 100
[2024-03-25 09:49] VITALS: BP 128/89; PULSE 84; RESP 18; TEMP 36.7; O2SAT 97
== END 2024-03-25 10:31 | disposition home or self-care (01) ==
PROVIDERS: Nurse Practitioner; PCP Internal Medicine; Visit Provider Internal Medicine
PROC: (CPT 45380; principal; 2024-03-25 08:20)
DX: K62.5 Hemorrhage of anus and rectum (principal); K64.8 Other hemorrhoids; K64.4 Residual hemorrhoidal skin tags; K31.7 Polyp of stomach and duodenum; K20.80 Other esophagitis without bleeding; K29.60 Other gastritis without bleeding; K44.9 Diaphragmatic hernia without obstruction or gangrene; K21.9 Gastro-esophageal reflux disease without esophagitis; E66.01 Morbid (severe) obesity due to excess calories; Z68.43 Body mass index [BMI] 50.0-59.9, adult; G89.4 Chronic pain syndrome; Z87.891 Personal history of nicotine dependence
CPT/HCPCS: 45380; 43239; 81025; 88305; 88313; 88342; J2704

== ENCOUNTER → 2024-03-25 07:02 | Outpatient (BNV) | payer OTHER, SELFPAY | PROVIDERS: PCP Internal Medicine; Visit Provider Internal Medicine | DX: K20.90 Esophagitis, unspecified without bleeding (principal); K31.7 Polyp of stomach and duodenum; K29.70 Gastritis, unspecified, without bleeding; K62.5 Hemorrhage of anus and rectum; K64.8 Other hemorrhoids | CPT/HCPCS: 43239; 45380 ==

== ENCOUNTER 2024-03-31 10:36 | Outpatient (REF) | payer OTHER, SELFPAY | END 2024-03-31 10:37 | disposition home or self-care (01) | LOC: HO.LAB 10:36 | PROVIDERS: PCP Internal Medicine; Visit Provider Advanced Practice Midwife | DX: Z01.419 Encounter for gynecological examination (general) (routine) without abnormal findings (principal); R32 Unspecified urinary incontinence; Z86.19 Personal history of other infectious and parasitic diseases; B37.31 Acute candidiasis of vulva and vagina; Z87.898 Personal history of other specified conditions | CPT/HCPCS: 99385; 99459 ==

== ENCOUNTER 2024-03-31 10:36 | Outpatient (AMB) | payer OTHER, SELFPAY ==
[2024-03-31 10:46] VITALS: BP 118/78; BMI 58.6
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
== END 2024-03-31 11:39 | disposition home or self-care (01) ==
PROVIDERS: PCP Internal Medicine; Visit Provider Advanced Practice Midwife
DX: Z01.419 Encounter for gynecological examination (general) (routine) without abnormal findings (principal); R32 Unspecified urinary incontinence
CPT/HCPCS: 99385

== ENCOUNTER 2024-03-31 11:49 | Outpatient (REF) | payer OTHER, SELFPAY ==
[2024-04-01 13:11] LABS: Bacterial Vaginosis PCR NEGATIVE (Negative); Candida Group PCR NOT DETECTED (Not Detect); Candida glab krusei PCR NOT DETECTED (Not Detect); Trichomonas vaginalis PCR NOT DETECTED (Not Detect)
[2024-04-01 13:42] LABS: CT PCR NOT DETECTED (Not Detect.); NG PCR NOT DETECTED (Not Detect.)
[2024-04-03 06:25] LABS: HPV 16,18/45 See PAP report
== END 2024-03-31 11:50 | disposition home or self-care (01) ==
LOC: HO.LNP 11:49
PROVIDERS: Visit Provider Advanced Practice Midwife
DX: Z01.419 Encounter for gynecological examination (general) (routine) without abnormal findings (principal); N89.8 Other specified noninflammatory disorders of vagina
CPT/HCPCS: 0352U; 87491; 87591; 87624; 88175

== ENCOUNTER 2024-04-07 11:13 | Outpatient (AMB) | payer OTHER, SELFPAY ==
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
--- OUTSIDE RECORDS SUMMARY | 2024-04-07 11:15 | XMS_ITS | Continuity of Care Document ---
Author Organization [facility] Address [address] [place] [address] Phone Care Team Providers Care Model And Mold Maker Plaster Name Role Phone Admin, Support Unavailable Unavailable Allergies, Adverse Reactions, Alerts Substance Reaction Status Criticality CEFTRIAXONE SODIUM Active No Inform ation Advance Directives Directive Yes / No Effective Date File Name No Information Encounters Encounter Description Practice Location Reason(s) For Visit Diagnoses Date Provider [facility], [address] [place] [address], [address] [place] [address] tel:[phone] [facility] [address] [place] [address] No Information 2021 Admin Support. [address] [place] [address]. tel:[phone] [facility], [address] [place] [address], [facility] [place], tel:[phone] [facility] [address] [place] [address] [address]. [address] [place] [address], [id number], . tel:[phone] [facility], [address] [place] [address], [facility] [place], tel:[phone] [facility] [address] [place] [address] [address]. [address] [place] [address], [id number], [place]. tel:[phone] [facility], [address] [place] [address], [facility] [place], tel:[phone] [facility] [address] [place] [address] [address] Hernández. [address] [place] [address], [id number], . tel:[phone] As per patient privacy policy some of the clinical information may not be visible. Family History Family Member Type Diagnosis Age At Onset No Information Payers Payer name Insurance type Covered alliance party ID Authorgarret payne(s) Izabela Llamas [id number] Social History Type Description Quantity Date Captured Comments Sex Female Smoking Status No Information Sexual Orientation Straight or heterosexual Jan Gender Identity Female Chief Complaint And Reason For Visit No Information History Of Present Illness Encounter Date Complaint History Of Prese nt Illness No Information Instructions Date Instruction Additional Infor mation No Information Assessments Type Assessment Date No Information
== END 2024-04-07 11:52 | disposition home or self-care (01) ==
LOC: HO.HGI 11:13
PROVIDERS: PCP Internal Medicine; Visit Provider Internal Medicine
DX: K21.9 Gastro-esophageal reflux disease without esophagitis (principal); K20.80 Other esophagitis without bleeding; K44.9 Diaphragmatic hernia without obstruction or gangrene
CPT/HCPCS: 99214

== ENCOUNTER → 2024-04-07 11:13 | Outpatient (BNVA) | payer OTHER, SELFPAY | PROVIDERS: PCP Internal Medicine; Visit Provider Internal Medicine ==

== ENCOUNTER 2024-07-24 12:32 | Outpatient (REF) | payer OTHER, SELFPAY ==
--- NOTE | ~2024-07-24 | XR_ITS ---
EXAMINATION: XR PELVIS 1-2 VIEWS HISTORY: M25.559 - Pain in unspecified hip COMPARISON: There are no prior studies for comparison. FINDINGS: A single AP view of the pelvis is submitted. Osseous mineralization is normal. There is no fracture or dislocation. The hip and sacroiliac joint spaces are maintained. The soft tissues are unremarkable. XR/XR pelvis 1-2V IMPRESSION: Unremarkable examination of the pelvis. Electronically signed by: Grayson Amaya MD 07/24/2024 01:38 PM EDT
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
== END 2024-07-24 12:33 | disposition home or self-care (01) ==
LOC: HO.HOSX 12:32
PROVIDERS: Visit Provider Orthopaedic Surgery
DX: M25.559 Pain in unspecified hip (principal); M70.61 Trochanteric bursitis, right hip
CPT/HCPCS: 20610; 72170; 99212; J0665; J1100; J2003

== ENCOUNTER 2024-07-24 13:24 | Outpatient (AMB) | payer OTHER, SELFPAY ==
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
--- OUTSIDE RECORDS SUMMARY | 2024-07-24 16:28 | XMS_ITS | Clinical Summary ---
Author Organization [facility] it Address [address] [place] [address] Care Team Providers Care Ice Skating Instructor Name Role Phone Guilherme Guillory MD Primary Care Provider [phone] Surgical History Surgery Date Site/Laterality Comments APPENDECTOMY PROCEDURE:APPENDECTOMY SECTION PROCEDURE: SECTION CHOLECYSTECTOMY 11/22/2017 N/A PROCEDURE:CHOLECYSTECTOMY;COMMENT:Procedur e: LAPAROSCOPY CHOLECYSTECTOMY; Surgeon: Vidal Bailon MD; Location: [facility] OPERATING RO[facility]; Service: General; Laterality: N/A; CONFIRMED [...] smear (11/03/2022 6:17 PM EDT) Case Results [facility] Department of Pathology [address] [place] [address]. [id number] ?? [place] REG# [id number] ??CLIA ID: [id number] Name: MARYAM DAMICO Spec #: [id number] Order Location: SPEC Submitting Physican: VERÓNICA TEMPLETON SHIPPING INSPECTOR Cytology Specimen(s) Received A: Cervical/Endocervi trudy-Thinprep Clinical Diagnosis Z12.4 Z11.51 History LMP not provided Other Clinical Conditions Screening pap Send HPV test regardless of pap results Reflex 16/18/45 ? FINAL CYTOLOGIC DIAGNOSIS Satisfactory for evaluation-Endocer vical Transformation zone component present Negative for Intraepithelial Lesion or Malignancy Trichomonas Vaginalis Hospice Rn:F IG ? Report Electronically Signed by Belkys Merchant MBA, [facility](ASCP) 11/09/2022 09:53:21 ? Procedures/Addenda HPV ??Testing ? Date Ordered: ? 11/03/2022 ? Status: ??Signed Out ? Date Complete: ? 11/08/2022 ? Date Reported: ? 11/08/2022 ? Interpretation HPV HIGH RISK: NEGATIVE This specimen was tested and interpreted at [facility] for the presence of E6/E7 viral messenger RNA from 14 high-risk types of HPV (APTIMA Assay). NONE of the following high risk HPV types was detected in this specimen: 16,18,31,33,35,39, 45,51,52,56,58,59, 66,and 68. ? Procedure Electronically Signed by Belkys Merchant MBA, [facility](ASCP) 11/08/2022 17:36:11 ? Other Specimens: [id number] [id number] [id number] ICD-9 (s): A: Z12.4 Billing Fee Code(s): ??92683 HPVT: 87958 SNOMED Code(s): A: E0004 T14038 M53910 E4433 [id number] HISTORICAL TESTING LAB RESULTING AGENCY 11/03/2022 6:17 PM EDT us Modesta [facility] CYTOLOGY ORDERABLES Fin al Result HISTORICAL TESTING LAB RESULTING AGENCY from Last 3 Months or Most Recently Relevant to Health Maintenance Care Teams Ice Skating Instructor Relationship Specialty Start Date End Date Guilherme Guillory MD [address] [place] [address] PCP - General 10/14/22
--- OUTSIDE RECORDS SUMMARY | 2024-07-24 16:28 | XMS_ITS | Clinical Summary ---
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 Care Teams Packaging Specialist Relationship Specialty Start Date End Date Guilherme Guillory MD [address] [place] [address] PCP - General Family Medicine 10/14/22
== END 2024-07-24 14:07 | disposition home or self-care (01) ==
LOC: HO.HOS 13:25
PROVIDERS: PCP Internal Medicine; Visit Provider Orthopaedic Surgery
DX: M70.61 Trochanteric bursitis, right hip (principal)
CPT/HCPCS: 20610; 99213

== ENCOUNTER → 2024-07-24 13:26 | Outpatient (BNV) | payer OTHER, SELFPAY | PROVIDERS: Visit Provider Radiology Diagnostic Radiology | DX: M25.559 Pain in unspecified hip (principal) | CPT/HCPCS: 72170 ==

== ENCOUNTER 2024-08-21 13:54 | Outpatient (AMB) | payer OTHER, SELFPAY ==
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
--- OUTSIDE RECORDS SUMMARY | 2024-08-21 14:34 | XMS_ITS | Clinical Summary ---
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 Care Teams Acoustical Tile Patternmaker Relationship Specialty Start Date End Date Guilherme Guillory MD [address] [place] [address] PCP - General Family Medicine 10/14/22
--- OUTSIDE RECORDS SUMMARY | 2024-08-21 14:35 | XMS_ITS | Clinical Summary ---
Author Organization [facility] it Address [address] [place] [address] Care Team Providers Care Warehouse Receiver Name Role Phone Guilherme Guillory MD Primary Care Provider [phone] Surgical History Surgery Date Site/Laterality Comments APPENDECTOMY PROCEDURE:APPENDECTOMY SECTION PROCEDURE: SECTION CHOLECYSTECTOMY 11/22/2017 N/A PROCEDURE:CHOLECYSTECTOMY;COMMENT:Procedur e: LAPAROSCOPY CHOLECYSTECTOMY; Surgeon: Vidal Bailon MD; Location: [facility]; Service: General; Laterality: N/A; CONFIRMED [...] Td Vaccines (1 - Tdap) 2009 Hepatitis A Vaccines (1 of 2 - Risk 2-dose series) 2009 Hepatitis B Vaccines (1 of 3 - 19+ 3-dose series) 2009 Pneumococcal Vaccine: Pediat rics (0 to 5 Years) and At-Risk Patients (6 to 64 Years) (1 of 2 - PCV) 2009 Cholesterol Screening (Lipid Panel) 03/11/2022 Depression Screening 03/11/2022 HIV Screening 03/11/2022 Hepatitis C Screening 03/11/2022 Social Influencers of Health Screening 03/11/2022 COVID-19 Vaccine ( - 2023-2 5 season) 2023 Influenza Vaccine [...] Results [facility] Department of Pathology [address] [place] [address]. [phone] ?? OR REG# [id number] ??CLIA ID: [id number] Name: MARYAM YUSUF Spec #: [id number] Order Location: SPEC Submitting Physican: VERÓNICA TEMPLETON ROUND KILN DRAWER Cytology Specimen(s) Received A: Cervical/Endocervi trudy-Thinprep Clinical Diagnosis Z12.4 Z11.51 History LMP not provided Other Clinical Conditions Screening pap Send HPV test regardless of pap results Reflex 16/18/45 ? FINAL CYTOLOGIC DIAGNOSIS Satisfactory for evaluation-Endocer vical Transformation zone component present Negative for Intraepithelial Lesion or Malignancy Trichomonas Vaginalis Spot Machine Operator:F IG ? Report Electronically Signed by Belkys Merchant MBA, [facility](ASCP) 11/09/2022 09:53:21 ? Procedures/Addenda HPV ??Testing ? Date Ordered: ? 11/03/2022 ? Status: ??Signed Out ? Date Complete: ? 11/08/2022 ? Date Reported: ? 11/08/2022 ? Interpretation HPV HIGH RISK: NEGATIVE This specimen was tested and interpreted at [facility] for the presence of E6/E7 viral messenger RNA from 14 high-risk types of HPV (APTIMA Assay). NONE of the following high risk HPV types was detected in this specimen: 16,18,31,33,35,39, 45,51,52,56,58,59, 66,and 68. ? Procedure Electronically Signed by Belkys Merchant MBA, [facility](ASCP) 11/08/2022 17:36:11 ? Other Specimens: [id number] [id number] [id number] ICD-9 (s): A: Z12.4 Billing Fee Code(s): ??88110 HPVT: 49021 SNOMED Code(s): A: E0004 [id number] I55918 E4433 X34135 HISTORICAL TESTING LAB RESULTING AGENCY 11/03/2022 6:17 PM EDT us [facility] CYTOLOGY ORDERABLES Fin al Result HISTORICAL TESTING LAB RESULTING AGENCY from Last 3 Months or Most Recently Relevant to Health Maintenance Care Teams Warehouse Receiver Relationship Specialty Start Date End Date Guilherme Guillory MD [address] [place] [address] PCP - General 10/14/22
== END 2024-08-21 15:09 | disposition home or self-care (01) ==
LOC: HO.HUSH 13:55
PROVIDERS: PCP Internal Medicine; Visit Provider Nurse Practitioner Family
DX: R33.9 Retention of urine, unspecified (principal); R32 Unspecified urinary incontinence; Z13.9 Encounter for screening, unspecified
CPT/HCPCS: 99204

== ENCOUNTER → 2024-08-21 13:54 | Outpatient (BNVA) | payer OTHER, SELFPAY | PROVIDERS: PCP Internal Medicine; Visit Provider Nurse Practitioner Family | DX: R33.9 Retention of urine, unspecified (principal); R32 Unspecified urinary incontinence | CPT/HCPCS: 51798; 81003; 99202 ==

== ENCOUNTER 2024-09-16 11:58 | Outpatient (REF) | payer OTHER, SELFPAY ==
[2024-09-16 12:15] LABS: MANUAL DIFF FLAG NO
[2024-09-16 12:36] LABS: Basophils Absolute Auto 0.1 X10*3/uL (0.0-0.2); Basophils Percent Auto 0.7 % (0-2); Eosinophils Absolute Auto 0.2 X10*3/uL (0.0-0.4); Eosinophils Percent Auto 1.9 % (0-4); Hemoglobin 13.5 g/dl (12.0-16.0); Imm Gran Abs Auto 0.08 X10*3/uL (0.00-0.03); Imm Gran Pct Auto 0.8 % (0.0-0.4); Lymphocytes Percent Auto 30.7 % (20-40); Mean Corpuscular HGB Conc 33.8 g/dl (31.0-35.0); Mean Corpuscular Hemoglobin 27.7 pg (27.0-33.0); Mean Corpuscular Volume 82.1 fL (80.0-98.0); Mean Platelet Volume 10.1 fL (9.4-12.3); Monocytes Absolute Auto 0.6 X10*3/uL (0.1-1.2); Monocytes Percent Auto 6.2 % (2-11); Neutrophils Absolute Auto 5.9 x10*3/uL (2.0-8.3); Neutrophils Percent Auto 59.7 % (45-73); Platelet Count 294 X10*3/uL (160-400); Red Blood Count 4.87 X10*6/uL (4.20-5.50); Red Cell Distribution Width 14.9 % (11.0-16.0); White Blood Count 9.8 X10*3/uL (4.8-10.8)
[2024-09-16 13:09] LABS: Alanine Aminotransferase 84 U/L (0-31); Albumin Level 4.1 g/dL (3.5-5.0); Alkaline Phosphatase 97 U/L (39-117); Anion Gap 12 (12-20); Aspartate Amino Transferase 65 U/L (5-31); Bilirubin Total 0.4 mg/dL (0.0-1.0); Blood Urea Nitrogen 10 mg/dL (9-16); Calcium 8.9 mg/dL (8.4-10.2); Carbon Dioxide 18 mmol/L (22-29); Chloride 113 mmol/L (96-108); Cholesterol 211 mg/dL (<200); Estimated Glomerular Filt Rate > 60; Glucose Random 141 mg/dL (60-115); HDL Cholesterol 44 mg/dL (>40); LDL Cholesterol Calculated 104 mg/dL (<100); Potassium 4.1 mmol/L (3.3-5.1); Sodium 139 mmol/L (135-145); Total Protein 7.5 g/dL (6.5-8.0); Triglycerides 316 mg/dL (<150)
[2024-09-16 13:24] LABS: Thyroid Stimulating Hormone 3.79 uIU/mL (0.32-4.0)
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
== END 2024-09-16 11:59 | disposition home or self-care (01) ==
LOC: HO.LAB 11:58
PROVIDERS: PCP Internal Medicine; Visit Provider Internal Medicine
DX: E04.1 Nontoxic single thyroid nodule (principal); I10 Essential (primary) hypertension; I47.19 Other supraventricular tachycardia; M70.61 Trochanteric bursitis, right hip
CPT/HCPCS: 36415; 80053; 80061; 84443; 85025

== ENCOUNTER 2024-10-07 06:52 | Day surgery (SDC) | payer OTHER, SELFPAY ==
--- OUTSIDE RECORDS SUMMARY | 2024-09-12 10:25 | XMS_ITS | Clinical Summary ---
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 Post-traumatic headache 09/21/2022 Trochanteric bursitis of right [...] dx 2011 Therapist is Meera Jeffers in [place] Gastric reflux 06/20/2017 Overview: Has had UGI [...] Tdap / Td (1 - Tdap) 2009 BMI Counseling 01/31/2024 01/30/2023, 10/17/2022 Influenza Vaccine (Season Ended) 2024 Cervical Cancer Screening (Pap Smear) 11/03/2025 11/03/2022 Hepatitis C Screening Completed 11/10/2022 RSV Ped < 20 months Aged Out No longe r eligible based on patient's age to complete this topic Advance Directives For more information, please contact: [phone] Documents on File Type Date Recorded Patient Graphic Art Sales Representative Expl anation Advance Directive and Living Will [...] way: discussion with patient . Care Teams Payment Processor Relationship Specialty Start Date End Date Guilherme Guillory MD [address] [place] [address] PCP - General Family Medicine 10/14/22
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
[2024-10-07 07:02] VITALS: BMI 58.6
[2024-10-07 07:08] LABS: UPreg QC Valid YES
[2024-10-07 07:13] VITALS: BP 129/71; PULSE 93; RESP 21; TEMP 36.6; O2SAT 96
[2024-10-07] MEDS: Lactated Ringers 1,000 ML 100 ML IVCONT (07:25)
--- NOTE | 2024-10-07 07:49 | MHC.SHP ---
Pre-Procedural Eval Section A - 24 Hr Update-Section A only Date of Service: 10/07/24 Section B - Complete if H&P > 30 days Chief Complaint: Other esophagitis without bleeding Details of Present Illness: S/P Hx of colonoscopy History of esophagogastroduodenoscopy (EGD) Present Medications: see Short Stay Collaborative assessment Allergies: Allergies Allergy/AdvReac Type Severity Reaction Status Date / Time bee pollen (bee stings) Allergy Anaphylaxis Verified 08/21/24 22:08 cariprazine (From Vraylar) Allergy lip Verified 08/21/24 22:08 swelling ceftriaxone (From Rocephin) Allergy Anaphylaxis Verified 08/21/24 22:08 strawberry Allergy Anaphylaxis Verified 08/21/24 22:08 Review of Systems Review of Systems Comment: 10 point ROS negative Exam Exam Comment: Gen appear: No acute distress HEENT: no icterus Chest: No overt resp distress Abd: soft, nontender, nondistended Psych: Stable affect, answering questions appropriately Neuro: A/Ox3 noted to move all extremities spontaneously Ext: no peripheral edema Plan Diagnosis/Plan: Unchanged I have reviewed the history and physical and performed a pertinent physical examination on my patient. No changes have occurred unless specified. Time Spent With Patient Time: Total time managing care of this patient today ____ minutes.
--- NOTE | 2024-10-07 08:11 | P.OP_ITS ---
Operative Note Operative Note Date of Service: 10/07/24 Narrative: Procedure: Esophagogastroduodenoscopy Endoscopist: Joy Wong MD Indication: Hx of grade D esophagitis Anesthesia Provider: Dr Carmen Figueroa Anesthesia Type: MAC ?? EGD Procedure:?? The procedure, indications, preparation and potential complications were r eviewed with the patient, who indicated understanding and gave written informed consent to proceed. A physical exam was performed. The endoscope was introduced through the mouth, and advanced to the second part of duodenum. The mucosa was carefully examined on slow withdrawal of the endoscope. The patient tolerated the procedure well. There were no immediate complications.? ? EGD Findings:? * Esophagus:? Normal mucosa noted in the entire esophagus. The Z line was at 34 cm displaced by a hiatal hernia with the diaphragmatic pinch at 37 cm . Middle and lower esophagus forceps biopsies were obtained to rule out eosinophilic esophagitis. * Stomach:? Normal mucosa was noted in the stomach. A few gastric polyps noted in the fundus of the stomach. These have been previously biopsied. Retroflexion was performed in the cardia that showed Hill grade III hiatal hernia. * Duodenum:? Normal mucosa was noted in the whole of the examined duodenum. ? EGD Impressions:? * Normal esophagus (biopsy) * Hiatal hernia * Gastric polyps * Normal stomach * Normal duodenum ?? Recommendations:?? * Esophagitis has healed up. Decrease omeprazole to once daily. * Barium swallow to be done as outpatient * Will review bariatric surgery referral for obesity management and hiatal hernia repair Above has been reviewed with the patient.
[2024-10-07 08:15] VITALS: BP 132/77; PULSE 101; RESP 18; TEMP 37.2; O2SAT 99
[2024-10-07 08:30] VITALS: BP 116/69; PULSE 101; RESP 18; TEMP 36.7; O2SAT 95
== END 2024-10-07 08:51 | disposition home or self-care (01) ==
PROVIDERS: Nurse Practitioner; PCP Internal Medicine; Visit Provider Internal Medicine
PROC: 0DJ08ZZ Inspection of Upper Intestinal Tract, Via Natural or Artificial Opening Endoscopic (ICD-10-PCS; CPT 43235; principal; 2024-10-07 07:30)
DX: K20.80 Other esophagitis without bleeding (principal); K44.9 Diaphragmatic hernia without obstruction or gangrene; K31.7 Polyp of stomach and duodenum; K21.9 Gastro-esophageal reflux disease without esophagitis; Z79.899 Other long term (current) drug therapy; Z88.8 Allergy status to other drugs, medicaments and biological substances; Z87.891 Personal history of nicotine dependence
CPT/HCPCS: 43239; 81025; 88305; 88313; J2003; J2704

== ENCOUNTER → 2024-10-07 06:52 | Outpatient (BNV) | payer OTHER, SELFPAY | PROVIDERS: PCP Internal Medicine; Visit Provider Internal Medicine | DX: K44.9 Diaphragmatic hernia without obstruction or gangrene (principal); K31.7 Polyp of stomach and duodenum | CPT/HCPCS: 43239 ==

== ENCOUNTER 2024-11-03 09:47 | Outpatient (AMB) | payer OTHER, SELFPAY ==
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
[2024-11-03 09:54] VITALS: BP 97/66; PULSE 116; BMI 57.9
--- OUTSIDE RECORDS SUMMARY | 2024-11-03 10:45 | XMS_ITS | Clinical Summary ---
Author Organization [facility] Address [address] [place] [address] Care Team Providers Care Computing Systems Mechanic Name Role Phone Guilherme Guillory MD Primary Care Provider [phone] Allergies Active Allergy Reactions Criticality Noted Date Comments Cefuroxime Hives Medium 05/23/2017 [place]wi Anaphylaxis High 05/02/2021 Latex 11/18/2017 Ceftriaxone 11/18/2017 [place] Anaphylaxis High 05/02/2021 Cariprazine Hives 09/01/2020 Lip [...] 0 09/21/2022 Active ergocalciferol (VITAMIN D2) capsule 15191 units Take 1 capsule (50,000 Units total) [...] radiculopathy 09/21/2022 Overview: Note: 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 hand 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 Post-traumatic headache 09/21/2022 Trochanteric bursitis of right [...] dx 2011 Therapist is Meera Jeffers in [place] Gastric reflux 06/20/2017 Overview: Has had UGI [...] 85 10/26/2022 9:03 AM EDT Temperature 36.8 C (98.2 F) 10/14/2022 6:39 PM EDT Respiratory Rate 16 10/14/2022 6:39 PM EDT [...] BMI Counseling 01/31/2024 01/30/2023, 10/17/2022 Influenza Vaccine (#1) 2024 Cervical Cancer Screening (Pap Smear) 11/03/2025 11/03/2022 Hepatitis C Screening Completed 11/10/2022 RSV Ped < 20 months Aged Out No longe r eligible based on patient's age to complete this topic Advance Directives For more information, please contact: [phone] Documents on File Type Date Recorded Patient Nutrition Services Manager Expl anation Advance Directive and Living [...] way: discussion with patient . Care Teams Computing Systems Mechanic Relationship Specialty Start Date End Date Guilherme Guillory MD [facility] [place] [address] PCP - General Family Medicine 10/14/22
--- OUTSIDE RECORDS SUMMARY | 2024-11-03 10:45 | XMS_ITS | Patient Health Record ---
Author Organization [facility] [place], Address [address] [place] [address] Support Name Relationship Address Phone Maryam parker Guarantor Unknown [phone] Reason For Referral No Information Plan Of Treatment Pending Test Test Name Order Date Cepheid SARS-CoV-2 01/03/2021 Insurance Providers Payer Name Payer Address Payer Phone Subscriber Number Group Number Insured Name Patient Relationship to Insured Coverage Start Date Coverage End Date CARES Act Maryam parker Self - patient is the insured
--- OUTSIDE RECORDS SUMMARY | 2024-11-03 10:46 | XMS_ITS | Clinical Summary ---
Author Organization [facility] Address [address] [place] [address] Care Team Providers Care Suppression Crew Leader Name Role Phone Guilherme Guillory MD Primary Care Provider [phone] Surgical History Surgery Date Site/Laterality Comments APPENDECTOMY PROCEDURE:APPENDECTOMY SECTION PROCEDURE: SECTION CHOLECYSTECTOMY 11/22/2017 N/A PROCEDURE:CHOLECYSTECTOMY;COMMENT:Procedur e: LAPAROSCOPY CHOLECYSTECTOMY; Surgeon: Vidal Bailon MD; Location: [facility] OPERATING ROOM; Service: General; Laterality: N/A; CONFIRMED [...] 5 Years) and At-Risk Patients (6 to 49 Years) (1 of 2 - PCV) 2009 Cholesterol Screening (Lipid Panel) 03/11/2022 HIV Screening 03/11/2022 Hepatitis C Screening 03/11/2022 Social Influencers of Health Screening 03/11/2022 COVID-19 Vaccine (1 - 2023-2 5 season) 2023 Depression Screening 04/09/2024 Influenza Vaccine (#1) 2024 Cervical Cancer Screening: P ap Smear [...] smear (11/03/2022 6:17 PM EDT) Case Results [facility] Department of Pathology [address] [place] [address] [place] [address] [place] REG# [id number] CLIA ID: [id number] Name: MARYAM DAMICO Spec #: [id number] Order Location: SPEC Submitting Physican: VERÓNICA TEMPLETON [employer] COOK Cytology Specimen(s) Received A: Cervical/Endocervi trudy-Thinprep Clinical Diagnosis Z12.4 Z11.51 History LMP not provided Other Clinical Conditions Screening pap Send HPV test regardless of pap results Reflex 16/18/45 FINAL CYTOLOGIC DIAGNOSIS Satisfactory for evaluation-Endocer vical Transformation zone component present Negative for Intraepithelial Lesion or Malignancy Trichomonas Vaginalis Grain Oilseed Or Pasture Farm Worker:Bessy IG Report Electronically Signed by Belkys Merchant MBA, CLS CT(ASCP) 11/09/2022 09:53:21 Procedures/Addenda HPV Testing Date Ordered: 11/03/2022 Status: Signed Out Date Complete: 11/08/2022 Date Reported: 11/08/2022 Interpretation HPV HIGH RISK: NEGATIVE This specimen was tested and interpreted at [facility] for the presence of E6/E7 viral messenger RNA from 14 high-risk types of HPV (APTIMA Assay). NONE of the following high risk HPV types was detected in this specimen: 16,18,31,33,35,39, 45,51,52,56,58,59, 66,and 68. Procedure Electronically Signed by Belkys Merchant MBA, CLS CT(ASCP) 11/08/2022 17:36:11 Other Specimens: [id number] ICD-9 (s): A: Z12.4 Billing Fee Code(s): 67051 HPVT: 93411 SNOMED Code(s): A: E0004 C90851 L89084 E4433 [id number] HISTORICAL TESTING LAB RESULTING AGENCY 11/03/2022 6:17 PM EDT [facility] CYT[facility]Y ORDERABLES Fin al Result HISTORICAL TESTING LAB RESULTING AGENCY from Last 3 Months or Most Recently Relevant to Health Maintenance Care Teams Suppression Crew Leader Relationship Specialty Start Date End Date Guilherme Guillory MD [address] [place] [id number] PCP - General 10/14/22
== END 2024-11-03 10:37 | disposition home or self-care (01) ==
PROVIDERS: PCP Internal Medicine; Visit Provider Internal Medicine
DX: K21.9 Gastro-esophageal reflux disease without esophagitis (principal); K20.80 Other esophagitis without bleeding; K44.9 Diaphragmatic hernia without obstruction or gangrene; R10.9 Unspecified abdominal pain; K58.0 Irritable bowel syndrome with diarrhea
CPT/HCPCS: 99214

== ENCOUNTER → 2024-11-03 09:47 | Outpatient (BNVA) | payer OTHER, SELFPAY | PROVIDERS: PCP Internal Medicine; Visit Provider Internal Medicine | DX: K21.9 Gastro-esophageal reflux disease without esophagitis (principal); R10.9 Unspecified abdominal pain; K58.0 Irritable bowel syndrome with diarrhea; K44.9 Diaphragmatic hernia without obstruction or gangrene; K20.80 Other esophagitis without bleeding | CPT/HCPCS: 99212 ==

== ENCOUNTER 2024-11-10 09:39 | Outpatient (REF) | payer OTHER, SELFPAY ==
--- NOTE | ~2024-11-10 | US_ITS ---
CLINICAL HISTORY: R32 - Unspecified urinary incontinence US Renal Comparison: CT/SR - CT ABDOMEN PELVIS WITH IV CONTRAST - 01/16/24 21:01 EDT Findings: There is limited evaluation of renal parenchyma bilaterally secondary to body habitus and fatty infiltration of the liver. Right kidney normal size, 10 cm length. Echotexture not well evaluated. Left kidney normal size and echotexture, 11.3 cm length. No hydronephrosis of either kidney. Normal color Doppler. Urinary bladder is unremarkable. Prevoid volume 158 mL. Postvoid volume 11 mL. The right ureteral jet was visualized. Left ureteral jet was not visualized. IMPRESSION: 1. Limited evaluation of the bilateral kidneys. No acute abnormality. 2. Fatty infiltration of the liver. This document has been electronically signed by: Marva Mrainelli MD on 11/10/2024 16:15:02
--- OUTSIDE RECORDS SUMMARY | 2024-11-10 10:12 | XMS_ITS | Clinical Summary ---
Author Organization [facility] Address [address] [place] [address] Care Team Providers Care Gum Scoring Machine Operator Name Role Phone Guilherme Guillory MD Primary Care Provider [phone] Allergies Active Allergy Reactions Criticality Noted Date Comments Cefuroxime Hives Medium 05/23/2017 Kiwi Anaphylaxis High 05/02/2021 Latex 11/18/2017 Ceftriaxone 11/18/2017 [place] Anaphylaxis High 05/02/2021 Cariprazine Hives 09/01/2020 Lip [...] 0 09/21/2022 Active ergocalciferol (VITAMIN D2) capsule 01661 units Take 1 capsule (50,000 Units total) [...] radiculopathy 09/21/2022 Overview: Note: weak right hand logger all round Post-traumatic headache 09/21/2022 Trochanteric bursitis of right [...] dx 2011 Therapist is Meera Jeffers in [place] Gastric reflux 06/20/2017 Overview: Has had UGI [...] Advance Directives For more information, please contact: [phone] Documents on File Type Date Recorded Patient Plate Cutter Expl anation Advance Directive and Living Will [...] way: discussion with patient . Care Teams Gum Scoring Machine Operator Relationship Specialty Start Date End Date Guilherme Guillory MD [facility] [place] [address] PCP - General Family Medicine 10/14/22
--- OUTSIDE RECORDS SUMMARY | 2024-11-10 10:12 | XMS_ITS | Clinical Summary ---
Author Organization [facility] it Address [address] [place] [address] Care Team Providers Care Igniter Assembler Name Role Phone Guilherme Guillory MD Primary Care Provider [phone] Surgical History Surgery Date Site/Laterality Comments APPENDECTOMY PROCEDURE:APPENDECTOMY SECTION PROCEDURE: SECTION CHOLECYSTECTOMY 11/22/2017 N/A PROCEDURE:CHOLECYSTECTOMY;COMMENT:Procedur e: LAPAROSCOPY CHOLECYSTECTOMY; Surgeon: Vidal Bailon MD; Location: [facility] OPERATING ROOM; Service: General; Laterality: N/A; CONFIRMED [...] smear (11/03/2022 6:17 PM EDT) Case Results [facility] Department of Pathology [address] [place] [address] [place] [address] [address] REG# [id number] CLIA ID: [id number] Name: MARYAM YUSUF Spec #: [id number] Order Location: SPEC Submitting Physican: VERÓNICA TEMPLETON MOTOR POOL DRIVER Cytology Specimen(s) Received A: Cervical/Endocervi trudy-Thinprep Clinical Diagnosis Z12.4 Z11.51 History LMP not provided Other Clinical Conditions Screening pap Send HPV test regardless of pap results Reflex 16/18/45 FINAL CYTOLOGIC DIAGNOSIS Satisfactory for evaluation-Endocer vical Transformation zone component present Negative for Intraepithelial Lesion or Malignancy Trichomonas Vaginalis Carbon Furnace Operator:Bessy IG Report Electronically Signed by Belkys Merchant MBA, CLS CT(ASCP) 11/09/2022 09:53:21 Procedures/Addenda HPV Testing Date Ordered: 11/03/2022 Status: Signed Out Date Complete: 11/08/2022 Date Reported: 11/08/2022 Interpretation HPV HIGH RISK: NEGATIVE This specimen was tested and interpreted at [facility] for the presence of E6/E7 viral messenger RNA from 14 high-risk types of HPV (APTIMA Assay). NONE of the following high risk HPV types was detected in this specimen: 16,18,31,33,35,39, 45,51,52,56,58,59, 66,and 68. Procedure Electronically Signed by Belkys Merchant MBA, CLS CT(ASCP) 11/08/2022 17:36:11 Other Specimens: [id number] ICD-9 (s): A: Z12.4 Billing Fee Code(s): 77554 HPVT: 26433 SNOMED Code(s): A: E0004 J19540 J41893 E4433 [id number] HISTORICAL TESTING LAB RESULTING AGENCY 11/03/2022 6:17 PM EDT [facility] CYTOLOGY ORDERABLES Fin al Result HISTORICAL TESTING LAB RESULTING AGENCY from Last 3 Months or Most Recently Relevant to Health Maintenance Care Teams Igniter Assembler Relationship Specialty Start Date End Date Guilherme Guillory MD [address] [place] [phone] PCP - General 10/14/22
--- OUTSIDE RECORDS SUMMARY | 2024-11-10 10:12 | XMS_ITS | Patient Health Record ---
Author Organization [facility] [place], Address [address] [place] [address] Support Name Relationship Address Phone Maryam parker Guarantor Unknown [phone] Reason For Referral No Information Plan Of Treatment Pending Test Test Name Order Date Cepheid SARS-CoV-2 01/03/2021 Insurance Providers Payer Name Payer Address Payer Phone Subscriber Number Group Number Insured Name Patient Relationship to Insured Coverage Start Date Coverage End Date CARES Act Maryam parker Self - patient is the insured
== END 2024-11-10 09:40 | disposition home or self-care (01) ==
LOC: HO.US 09:39
PROVIDERS: PCP Internal Medicine; Visit Provider Nurse Practitioner Family
DX: R32 Unspecified urinary incontinence (principal); R33.9 Retention of urine, unspecified
CPT/HCPCS: 76770

== ENCOUNTER → 2024-11-10 09:43 | Outpatient (BNV) | payer OTHER, SELFPAY | PROVIDERS: PCP Internal Medicine; Visit Provider Radiology Diagnostic Radiology | DX: R33.9 Retention of urine, unspecified (principal) | CPT/HCPCS: 76770 ==

== ENCOUNTER 2024-11-24 07:03 | Emergency (ER) | payer OTHER, SELFPAY ==
[2024-11-24 07:11] VITALS: BP 128/84; PULSE 100; O2SAT 99
[2024-11-24 07:14] VITALS: BP 168/91; PULSE 106; RESP 16; TEMP 37; O2SAT 98; BMI 59.0
--- NOTE | 2024-11-24 07:57 | ED.GENADULT ---
[facility] - General Adult General Chief complaint: Neck Pain/Injury Stated complaint: Pinched nerve and cervical spine pain Time Seen by Provider: 11/24/24 07:57 Source: patient Mode of arrival: ambulatory Limitations: no limitations History of Present Illness ED Provider: Dr. Kennedy HPI narrative: 34-year-old female history of chronic pain, cervical disc herniation present hospital today for left-sided neck pain. She has difficulty turning her head to the left side. Dyspneic on for 5 days now. Patient has tried upan-jds-zoyiply medicine without any alleviation. She states she follows with pain clinic where she received injection for her neck. She denies any fever. She does complain of some paresthesia down her left arm. New line pain is worsened on movement. Denies any new bowel incontinence. No urinary abnormality. No acute lower extremity changes. Related Data Home Medications ?Medication ?Instructions ?Recorded ?Confirmed methylphenidate HCl 36 mg 36 mg PO DAILY 06/01/23 08/21/24 tablet,extended release 24 hr (Concerta) prazosin 2 mg capsule 4 mg PO BEDTIME 07/02/23 08/21/24 hydroxyzine HCl 10 mg tablet 10 mg PO BID 04/07/24 08/21/24 metoprolol succinate 100 mg 100 mg PO DAILY 08/21/24 08/21/24 tablet,extended release 24 hr buspirone 15 mg tablet 15 mg PO BEDTIME anxiety 11/03/24 topiramate 100 mg tablet 100 mg PO BID 11/03/24 Previous Rx's ?Medication ?Instructions ?Recorded hydrocortisone 2.5 % topical cream 1 appl OK BEDTIME hemorrhoids 14 06/10/24 with perineal applicator days #30 grams disposable gloves #1,000 ea 08/21/24 diaper,brief,adult,disposable #60 ea 08/25/24 Personal care wipes #192 ea 09/18/24 cholestyramine 4 gram oral powder 4 g PO BID 90 days #201.6 grams 11/03/24 (Cholestyramine Light) omeprazole 20 mg capsule,delayed 20 mg PO DAILY 90 days #90 caps 11/03/24 release baclofen 5 mg tablet 5 mg PO BID 7 days #14 tabs 11/24/24 lidocaine 4 % topical patch 1 patch topical DAILY PRN pain #6 11/24/24 ea Allergies Allergy/AdvReac Type Severity Reaction Status Date / Time bee pollen (bee stings) Allergy Anaphylaxis Verified 11/24/24 07:17 cariprazine (From Vraylar) Allergy lip Verified 11/24/24 07:17 swelling ceftriaxone (From Rocephin) Allergy Anaphylaxis Verified 11/24/24 07:17 strawberry Allergy Anaphylaxis Verified 11/24/24 07:17 Review of Systems Review of Systems: All review of system negative other than symptoms mentioned [facility] History [facility] Narrative: As mentioned in HPI Surgical History S/P Hx of colonoscopy History of esophagogastroduodenoscopy (EGD) Social History Social History Patient Tobacco Use Status: Former Tobacco user Advance Directives: No Advance Directives Information Provided: Yes Current occupational status: disabled 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 Decreased range of motion turning her head to the left. Neurological: Awake and alert, no facial droop noted Skin: Warm and dry Psychiatric: Appropriate mood and thoughts Vital Signs: Vital Signs - 24 hr 11/24/24 07:14 Temperature 98.6 F Pulse Rate 106 H Respiratory Rate 16 Blood Pressure 168/91 H Pulse Oximetry 98 Oxygen Delivery Method Room Air BMI result Body Mass Index 59.0 Medications Administered Discontinued Medications Generic Name Dose Route Start Last Admin Trade Name Orestesq PRN Reason Stop Dose Admin Acetaminophen 975 mg 11/24/24 08:10 11/24/24 09:46 Acetaminophen 325 Mg Tablet PO 11/24/24 08:11 975 mg ONCE ONE Administration Diazepam 5 mg 11/24/24 08:10 11/24/24 09:47 Diazepam 5 Mg Tablet PO 11/24/24 08:11 5 mg ONCE ONE Administration Ketorolac Tromethamine 30 mg 11/24/24 08:10 11/24/24 09:47 Ketorolac Tromethamine 30 Mg/Ml Vial IM 11/24/24 08:11 30 mg ONCE ONE Administration Lidocaine 1 patch 11/24/24 08:10 11/24/24 09:47 Lidocaine 4 % Patch Adh..Patch TRANSDERMA 11/24/24 08:11 1 patch ONCE ONE Administration Protocol Medical Decision Making Medical Decision Making MDM Narrative: This is a 34-year-old female history of cervical disc herniation, chronic pain presented hospital today for evaluation of left-sided neck pain that started 5 days ago. I suspect patient may have some cervical radiculopathy symptoms. However this may also be trapezius spasm in nature. We will plan to treat patient's pain with IM Toradol, p.o. Valium, lidocaine patch, and a dose of Tylenol as well. I am not worried about a compromise of the cervical cord based on my physical exam and her history at this time. She endorses difficulty turning her head to the left side due to spasm of her left neck. I suspect this is musculoskeletal in nature. The underlying inflammation may be causing some radiculopathy. Will plan to reassess after medication. Per recent note from pain management clinic on 10/22/23 Patient had MRI performed of cervical spine and brain at [facility] in [place]. Which did not show any cyanosis or cervical spinal stenosis with minimal changes no foraminal stenosis at that time. Patient stated her pain has improved some. It is 5/10 at this time. We will plan discharge patient home with some muscle relaxer, also discharge with lidocaine patch. Encouraged patient to follow up with her primary care doctor. She agrees and understands this plan all questions were addressed. Return precautions provided as well. Differential Diagnosis Cervical radiculopathy, trapezius spasm on the left side, cervical cord compression Discharge Plan Discharge Clinical Impression: Torticollis Patient Disposition: Home, Self-Care Instructions: Neck Pain (ED) Additional Instructions: You have spasm of your left side trapezius muscle. Will plan to prescribe some lidocaine patch and muscle relaxer to take. Please follow-up with your primary care doctor. Prescriptions: New baclofen 5 mg tablet 5 mg PO BID 7 Days Qty: 14 0RF lidocaine 4 % adhesive patch,medicated 1 patch topical DAILY PRN (Reason: pain) Qty: 6 0RF No Action hydrocortisone 2.5 % cream with perineal applicator 1 appl OK BEDTIME 14 Days Qty: 30 0RF (DME) disposable gloves Misc See Rx Instructions .Route Qty: 1000 4RF Rx Instructions: As directed size small for personal care (DME) diaper,brief,adult,disposable Misc See Rx Instructions .Route Qty: 60 4RF Rx Instructions: Pull up diapers use as needed for incontinence (DME) Personal care wipes See Rx Instructions .Route .MEDSUPPLY Qty: 192 5RF Rx Instructions: no strength needed use topically 10 times a day; Please provide 4 packs monthly methylphenidate HCl [Concerta] 36 mg tablet extended release 24hr 36 mg PO DAILY prazosin 2 mg capsule 4 mg PO BEDTIME topiramate 100 mg tablet 100 mg PO BID buspirone 15 mg tablet 15 mg PO BEDTIME omeprazole 20 mg capsule,delayed release(DR/EC) 20 mg PO DAILY 90 Days Qty: 90 1RF Cholestyramine Light 4 gram powder 4 g PO BID 90 Days Qty: 201.6 1RF Rx Instructions: avoid other meds within 1hr before or 4 hr after dose. Can adjust as needed for goal of 1 BM per day hydroxyzine HCl 10 mg tablet 10 mg PO BID metoprolol succinate 100 mg tablet extended release 24 hr 100 mg PO DAILY Print Language: Mozambican
--- OUTSIDE RECORDS SUMMARY | 2024-11-24 08:50 | XMS_ITS | Clinical Summary ---
Author Organization [facility] it Address [address] [place] [address] Care Team Providers Care Homoeopath Name Role Phone Guilherme Guillory MD Primary Care Provider [phone] Surgical History Surgery Date Site/Laterality Comments APPENDECTOMY PROCEDURE:APPENDECTOMY SECTION PROCEDURE: SECTION CHOLECYSTECTOMY 11/22/2017 N/A PROCEDURE:CHOLECYSTECTOMY;COMMENT:Procedur e: LAPAROSCOPY CHOLECYSTECTOMY; Surgeon: Vidal Bailon MD; Location: [facility] OPERATING [facility]; Service: General; Laterality: N/A; CONFIRMED [...] smear (11/03/2022 6:17 PM EDT) Case Results [facility] Department of Pathology [address] [place] [address] [place] [address] [place] REG# [id number] CLIA ID: [id number] Name: MARYAM YUSUF Spec #: [id number] Order Location: SPEC Submitting Physican: VERÓNICA TEMPLETON SPOUTING INSTALLER Cytology Specimen(s) Received A: Cervical/Endocervi trudy-Thinprep Clinical Diagnosis Z12.4 Z11.51 History LMP not provided Other Clinical Conditions Screening pap Send HPV test regardless of pap results Reflex 16/18/45 FINAL CYTOLOGIC DIAGNOSIS Satisfactory for evaluation-Endocer vical Transformation zone component present Negative for Intraepithelial Lesion or Malignancy Trichomonas Vaginalis Mingler Operator:Bessy IG Report Electronically Signed by Belkys Merchant MBA, CLS CT(ASCP) 11/09/2022 09:53:21 Procedures/Addenda HPV Testing Date Ordered: 11/03/2022 Status: Signed Out Date Complete: 11/08/2022 Date Reported: 11/08/2022 Interpretation HPV HIGH RISK: NEGATIVE This specimen was tested and interpreted at [facility] for the presence of E6/E7 viral messenger RNA from 14 high-risk types of HPV (APTIMA Assay). NONE of the following high risk HPV types was detected in this specimen: 16,18,31,33,35,39, 45,51,52,56,58,59, 66,and 68. Procedure Electronically Signed by Belkys Merchant MBA, CLS CT(ASCP) 11/08/2022 17:36:11 Other Specimens: [id number] ICD-9 (s): A: Z12.4 Billing Fee Code(s): 97120 HPVT: 98329 SNOMED Code(s): A: E0004 H64273 [id number] E4433 [id number] HISTORICAL TESTING LAB RESULTING AGENCY 11/03/2022 6:17 PM EDT [facility] CYTOLOGY ORDERABLES Fin al Result HISTORICAL TESTING LAB RESULTING AGENCY from Last 3 Months or Most Recently Relevant to Health Maintenance Care Teams Homoeopath Relationship Specialty Start Date End Date Guilherme Guillory MD [address] [place] [id number] PCP - General 10/14/22
--- OUTSIDE RECORDS SUMMARY | 2024-11-24 08:50 | XMS_ITS | Clinical Summary ---
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 Care Teams Marble Polisher Relationship Specialty Start Date End Date Guilherme Guillory MD [facility] [place] [address] PCP - General Family Medicine 10/14/22
--- OUTSIDE RECORDS SUMMARY | 2024-11-24 08:50 | XMS_ITS | Patient Health Record ---
Author Organization [facility] - [facility] [place], Address [address] [place] [address] Support Name Relationship Address Phone Maryam parker Guarantor Unknown [phone] Reason For Referral No Information Plan Of Treatment Pending Test Test Name Order Date Cepheid SARS-CoV-2 01/03/2021 Insurance Providers Payer Name Payer Address Payer Phone Subscriber Number Group Number Insured Name Patient Relationship to Insured Coverage Start Date Coverage End Date CARES Act Maryam parker Self - patient is the insured
[2024-11-24] MEDS: Lidocaine 4 % Patch ADH..PATCH 1 PATCH TRANSDERMA (09:47)
--- NOTE | 2024-11-24 11:16 | PC.NURSE ---
pt was seen and discharged by MD Kennedy
== END 2024-11-24 11:17 | disposition home or self-care (01) ==
PROVIDERS: Emergency Provider Student in an Organized Health Care Education/Training Program; PCP Internal Medicine
DX: M43.6 Torticollis (principal); M54.2 Cervicalgia
CPT/HCPCS: 96372; 99282; 99284; J1885

== ENCOUNTER 2024-12-09 14:00 | Outpatient (RCR) | payer MEDICARE, OTHER, MEDICAID, SELFPAY ==
--- NOTE | 2024-10-06 10:27 | MHC.OT.EP ---
[address] [phone] Occupational Therapy Plan of Care Patient Name: Maryam Yusuf Date of Evaluation: 09/26/24 Diagnosis: R ulnar neuropathy (hand) Pain Location: RUE Pain Score: 6 Pain Scale Used: Numeric (0 - 10) Aggravating Factors: could not quantify Alleviating Factors: cannot quantify Assessment: Pt is a 34 yr old R hand dominant female who reports a diagnosis of ulnar neuropathy over the last few years. She reports there is concern in regards to weakness and difficulty w/ perfroming ADLs such as writing, cooking, buttoning, and fine motor tasks. 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 She was asked to perform a writing task of The large brown bear jumped over the galindo which took 1min and eleven seconds w/ just using her normal writing technique. When asked to write using a built up handle the same sentence took 23 seconds to write and pt. reported improvement. She would benefit from skilled OT therapy to address deficits such as weakness, and learning adaptive techniques/ modifications to perform ADLS. Pt reports finances are a concern and cannot afford to purchase adaptive equipment. She also discussed safety at home and concern for Independently performing ADLs and she may benefit from an in home OT evaluation/ treatment, Frequency and Duration: The patient will be seen Short Term Goals: Pt will adhere to HEP Pt will gain 5 lbs of R hand customer service clerk (40 lbs) Pt will write The large brown bear jumped over the galindo in under 20 seconds w/ out difficulty Longterm Goals: Pt will adhere to modification techniques to perform ADLS Pt will have 50 lbs of R hand customer service clerk Pt will report being MOD A in LB Dressing Treatment Plan: Therapeutic Exercise Therapeutic Activity Home Exercise Program Splinting Neuro Re-ed Patient Education ADL Training Joint Mobilization Soft Tissue Mobilization Kinesiotaping Other (see comments) ACTIVITY MODIFICATIONS/ ADAPTIVE EQUIPMENT Electronically Signed By: Felipa Castellano> Aries OTR/L Please Sign and return to therapist. Thank you once again for your referral.
== END 2024-12-09 14:41 | disposition home or self-care (01) ==
LOC: HO.OT 14:00
PROVIDERS: PCP Internal Medicine; Visit Provider Internal Medicine
DX: G56.21 Lesion of ulnar nerve, right upper limb (principal)
CPT/HCPCS: 97110; 97166

== ENCOUNTER 2024-12-09 14:39 | Outpatient (AMB) | payer OTHER, SELFPAY ==
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
--- OUTSIDE RECORDS SUMMARY | 2024-12-09 15:53 | XMS_ITS | Clinical Summary ---
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 Care Teams Arborist Representative Relationship Specialty Start Date End Date Guilherme Guillory MD [facility] [place] [address] PCP - General Family Medicine 10/14/22
--- OUTSIDE RECORDS SUMMARY | 2024-12-09 15:56 | XMS_ITS | Clinical Summary ---
Author Organization [facility] it Address [address] [place] [address] Care Team Providers Care Duty Engineer Name Role Phone Guilherme Guillory MD Primary Care Provider [phone] Surgical History Surgery Date Site/Laterality Comments APPENDECTOMY PROCEDURE:APPENDECTOMY SECTION PROCEDURE: SECTION CHOLECYSTECTOMY 11/22/2017 N/A PROCEDURE:CHOLECYSTECTOMY;COMMENT:Procedur e: LAPAROSCOPY CHOLECYSTECTOMY; Surgeon: Vidal Bailon MD; Location: [facility] OPERATING [facility]; Service: General; [...] 03/11/2022 Social Influencers of Health Screening 03/11/2022 Depression Screening 04/09/2024 COVID-19 Vaccine ( - 2023-2 5 season) 2024 Influenza Vaccine (#1) 2024 Cervical Cancer Screening: [...] smear (11/03/2022 6:17 PM EDT) Case Results [facility] Department of Pathology [address] [place] [address] [place] [address] [place] REG# [id number] CLIA ID: [id number] Name: MARYAM YUSUF Spec #: [id number] Order Location: SPEC Submitting Physican: VERÓNICA TEMPLETON SOLAR THERMAL INSTALLER Cytology Specimen(s) Received A: Cervical/Endocervi trudy-Thinprep Clinical Diagnosis Z12.4 Z11.51 History LMP not provided Other Clinical Conditions Screening pap Send HPV test regardless of pap results Reflex 16/18/45 FINAL CYTOLOGIC DIAGNOSIS Satisfactory for evaluation-Endocer vical Transformation zone component present Negative for Intraepithelial Lesion or Malignancy Trichomonas Vaginalis Life Underwriter:Bessy IG Report Electronically Signed by Belkys Merchant MBA, CLS CT(ASCP) 11/09/2022 09:53:21 Procedures/Addenda HPV Testing Date Ordered: 11/03/2022 Status: Signed Out Date Complete: 11/08/2022 Date Reported: 11/08/2022 Interpretation HPV HIGH RISK: NEGATIVE This specimen was tested and interpreted at [facility] for the presence of E6/E7 viral messenger RNA from 14 high-risk types of HPV (APTIMA Assay). NONE of the following high risk HPV types was detected in this specimen: 16,18,31,33,35,39, 45,51,52,56,58,59, 66,and 68. Procedure Electronically Signed by Belkys Merchant MBA, CLS CT(ASCP) 11/08/2022 17:36:11 Other Specimens: [id number] ICD-9 (s): A: Z12.4 Billing Fee Code(s): 65916 HPVT: 07561 SNOMED Code(s): A: E0004 O35774 U49572 E4433 [id number] HISTORICAL TESTING LAB RESULTING AGENCY 11/03/2022 6:17 PM EDT [facility] CYTOLOGY ORDERABLES Fin al Result HISTORICAL TESTING LAB RESULTING AGENCY from Last 3 Months or Most Recently Relevant to Health Maintenance Care Teams Duty Engineer Relationship Specialty Start Date End Date Guilherme Guillory MD [address] [place] [id number] PCP - General 10/14/22
== END 2024-12-09 15:33 | disposition home or self-care (01) ==
LOC: HO.HUSH 14:40
PROVIDERS: PCP Internal Medicine; Visit Provider Nurse Practitioner Family
DX: R33.9 Retention of urine, unspecified (principal); R32 Unspecified urinary incontinence; Z13.9 Encounter for screening, unspecified
CPT/HCPCS: 99214

== ENCOUNTER → 2024-12-09 14:39 | Outpatient (BNVA) | payer MEDICARE, MEDICAID, SELFPAY | PROVIDERS: PCP Internal Medicine; Visit Provider Nurse Practitioner Family | DX: R33.9 Retention of urine, unspecified (principal); R32 Unspecified urinary incontinence; Z13.9 Encounter for screening, unspecified | CPT/HCPCS: 81003; 99212 ==

== ENCOUNTER 2024-12-10 11:00 | Outpatient (RCR) | payer MEDICARE, OTHER, MEDICAID, SELFPAY | END 2025-03-04 13:40 | disposition home or self-care (01) | LOC: HO.PT 11:00 | PROVIDERS: PCP Internal Medicine; Visit Provider Internal Medicine | DX: M70.60 Trochanteric bursitis, unspecified hip (principal) | CPT/HCPCS: 97110; 97163; 97530; 97535 ==

== ENCOUNTER 2025-01-02 08:35 | Outpatient (REF) | payer MEDICARE, MEDICAID, SELFPAY ==
--- NOTE | ~2025-01-02 | US_ITS ---
CLINICAL HISTORY: R10.9 - Unspecified abdominal pain US abdomen complete with color Doppler Comparison: US/IL/SR - US RETROPERITONEAL COMP - 11/10/24 10:[address]/SR - CT ABDOMEN PELVIS WITH IV CONTRAST - 01/16/24 21:01 EDT Findings: Midline structures obscured by bowel gas Liver is enlarged and echogenic. Right lobe 17.7 cm length. No focal hepatic masses. Common bile duct not well demonstrated Post cholecystectomy. No sonographic Portillo sign. Right kidney normal size, 9.5 cm in length. Normal cortical width and echotexture. Limited evaluation of the right kidney. Left kidney normal, 9.2 cm in length. Normal cortical width and echotexture. Limited evaluation of left kidney Spleen measures 14.3 cm. No splenic masses. No ascites. No lymphadenopathy. Impression: 1. Limited study due to bowel gas and body habitus. 2. Hepatomegaly with marked hepatic steatosis or diffuse hepatocellular disease. 3. Post cholecystectomy. 4. Splenomegaly. This document has been electronically signed by: Anthony Ren MD on 01/03/2025 15:29:34
--- OUTSIDE RECORDS SUMMARY | 2025-01-02 08:57 | XMS_ITS | Clinical Summary ---
Author Organization [facility] Address [address] [place] [address] Care Team Providers Care Kinder Teacher Name Role Phone Guilherme Guillory MD Primary Care Provider [phone] Allergies Active Allergy Reactions Criticality Noted Date Comments Cefuroxime Hives Medium 05/23/2017 Kiwi Anaphylaxis High 05/02/2021 Latex 11/18/2017 Ceftriaxone 11/18/2017 [place] Anaphylaxis High 05/02/2021 Cariprazine Hives 09/01/2020 Lip [...] 0 09/21/2022 Active ergocalciferol (VITAMIN D2) capsule 48962 units Take 1 capsule (50,000 Units total) [...] radiculopathy 09/21/2022 Overview: 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 Care Teams Kinder Teacher Relationship Specialty Start Date End Date Guilherme Guillory MD [facility] [place] [address] PCP - General Family Medicine 10/14/22
--- OUTSIDE RECORDS SUMMARY | 2025-01-02 08:58 | XMS_ITS | Patient Health Record ---
Author Organization [facility] [place], Address [address] [facility] [place] [address] Support Name Relationship Address Phone Maryam parker Guarantor Unknown [phone] Reason For Referral No Information Plan Of Treatment Pending Test Test Name Order Date Cepheid SARS-CoV-2 01/03/2021 Insurance Providers Payer Name Payer Address Payer Phone Subscriber Number Group Number Insured Name Patient Relationship to Insured Coverage Start Date Coverage End Date CARES Act Maryam parker Self - patient is the insured
--- OUTSIDE RECORDS SUMMARY | 2025-01-02 08:59 | XMS_ITS | Clinical Summary ---
Author Organization [facility] Address [address] [place] [address] Care Team Providers Care Fire Dispatcher Name Role Phone Guilherme Guillory MD Primary Care Provider [phone] Surgical History Surgery Date Site/Laterality Comments APPENDECTOMY PROCEDURE:APPENDECTOMY SECTION PROCEDURE: SECTION CHOLECYSTECTOMY 11/22/2017 N/A PROCEDURE:CHOLECYSTECTOMY;COMMENT:Procedur e: LAPAROSCOPY CHOLECYSTECTOMY; Surgeon: Vidal Bailon MD; Location: [facility]PER[facility]; Service: General; Laterality: N/A; [...] Results [facility] Department of Pathology [address] [place] [address] [place] [address] [place] REG# [id number] CLIA ID: [id number] Name: MARYAM YUSUF Spec #: [id number] Order Location: SPEC Submitting Physican: VERÓNICA TEMPLETON STAPLER MACHINE Cytology Specimen(s) Received A: Cervical/Endocervi trudy-Thinprep Clinical Diagnosis Z12.4 Z11.51 History LMP not provided Other Clinical Conditions Screening pap Send HPV test regardless of pap results Reflex 16/18/45 FINAL CYTOLOGIC DIAGNOSIS Satisfactory for evaluation-Endocer vical Transformation zone component present Negative for Intraepithelial Lesion or Malignancy Trichomonas Vaginalis Script Editor:Bessy IG Report Electronically Signed by Belkys Merchant MBA, CLS CT(ASCP) 11/09/2022 09:53:21 Procedures/Addenda HPV Testing Date Ordered: 11/03/2022 Status: Signed Out Date Complete: 11/08/2022 Date Reported: 11/08/2022 Interpretation HPV HIGH RISK: NEGATIVE This specimen was tested and interpreted at [facility] for the presence of E6/E7 viral messenger RNA from 14 high-risk types of HPV (APTIMA Assay). NONE of the following high risk HPV types was detected in this specimen: 16,18,31,33,35,39, 45,51,52,56,58,59, 66,and 68. Procedure Electronically Signed by Belkys Merchant MBA, CLS CT(ASCP) 11/08/2022 17:36:11 Other Specimens: [id number] ICD-9 (s): A: Z12.4 Billing Fee Code(s): 08381 HPVT: 48964 SNOMED Code(s): A: E0004 D85996 E48643 E4433 [id number] HISTORICAL TESTING LAB RESULTING AGENCY 11/03/2022 6:17 PM EDT [facility] CYTOLOGY ORDERABLES Fin al Result HISTORICAL TESTING LAB RESULTING AGENCY from Last 3 Months or Most Recently Relevant to Health Maintenance Care Teams Fire Dispatcher Relationship Specialty Start Date End Date Guilherme Guillory MD [address] [place] [phone] PCP - General 10/14/22
[2025-01-02 10:08] LABS: Total Hemoglobin (HGBA1C) 3351.5871 umol/L
[2025-01-02 10:31] LABS: Alanine Aminotransferase 74 U/L (0-31); Albumin Level 4.4 g/dL (3.5-5.0); Alkaline Phosphatase 110 U/L (39-117); Anion Gap 15 (12-20); Aspartate Amino Transferase 66 U/L (5-31); Blood Urea Nitrogen 11 mg/dL (9-16); Calcium 9.5 mg/dL (8.4-10.2); Carbon Dioxide 20 mmol/L (22-29); Chloride 111 mmol/L (96-108); Cholesterol 234 mg/dL (<200); Estimated Glomerular Filt Rate > 60; HDL Cholesterol 42 mg/dL (>40); Potassium 4.0 mmol/L (3.3-5.1); Sodium 142 mmol/L (135-145); Total Protein 7.8 g/dL (6.5-8.0); Triglycerides 369 mg/dL (<150)
[2025-01-02 10:39] LABS: HBS Num1 1.52 mIU/mL (0-7.99); HBc Num1 0.05 S/CO (0.00-0.79); HBsAGNum1 0.36 S/CO (0.00-0.99); Hepatitis B Surface Antigen Negative (Negative); ~HepC Num1 0.05 S/CO (0.00-0.79); ~Hepatitis B Surface Antibody NONREACTIVE (Nonreactive); ~Hepatitis C Antibody Nonreactive (Nonreactive)
== END 2025-01-02 08:36 | disposition home or self-care (01) ==
LOC: HO.US 08:35
PROVIDERS: Absent Provider Internal Medicine; PCP Internal Medicine; Visit Provider Internal Medicine
DX: E78.2 Mixed hyperlipidemia (principal); R10.9 Unspecified abdominal pain; G56.21 Lesion of ulnar nerve, right upper limb; I10 Essential (primary) hypertension; M54.50 Low back pain, unspecified; R73.01 Impaired fasting glucose; R74.01 Elevation of levels of liver transaminase levels; Z68.44 Body mass index [BMI] 60.0-69.9, adult
CPT/HCPCS: 36415; 76700; 80053; 80061; 83036; 86704; 86706; 86803; 87340

== ENCOUNTER 2025-02-26 08:58 | Outpatient (REF) | payer OTHER, SELFPAY ==
--- NOTE | ~2025-02-26 | FL_ITS ---
EXAMINATION: XR BARIUM SWALLOW CLINICAL INFORMATION: K20.80 - Other esophagitis without bleeding COMPARISON: None available. TECHNIQUE: Barium swallow was performed using thin and thick barium and effervescent granules. Barium tablet was also administered. FINDINGS: Swallowing mechanism is normal. No aspiration or penetration. There is mucosal irregularity seen throughout the entire esophagus suggestive of mild esophagitis. Normal esophageal motility. No mass or stricture. Exam somewhat limited due to limited patient mobility. No esophageal hernia seen. Only minimal gastroesophageal reflux could be elicited. Barium tablet passed freely into the stomach. FLUOROSCOPY TIME: 2 minutes 1 second DOSE AREA PRODUCT: 1795 uGy-m2 (microgray-meter squared) FL/FL barium swallow with air IMPRESSION: Limited exam due to decreased patient mobility. Mild esophagitis. Trace gastroesophageal reflux. Electronically signed by: Carmen Fernandes MD 02/26/2025 10:20 AM [facility]
== END 2025-02-26 08:59 | disposition home or self-care (01) ==
LOC: HO.XRAY 08:58
PROVIDERS: PCP Internal Medicine; Visit Provider Internal Medicine
DX: K20.80 Other esophagitis without bleeding (principal)
CPT/HCPCS: 74221

== ENCOUNTER → 2025-02-26 09:30 | Outpatient (BNV) | payer OTHER, SELFPAY | PROVIDERS: PCP Internal Medicine; Visit Provider Radiology Diagnostic Radiology | DX: K20.80 Other esophagitis without bleeding (principal) | CPT/HCPCS: 74221 ==

== ENCOUNTER 2025-03-19 12:35 | Outpatient (REF) | payer OTHER, SELFPAY ==
--- NOTE | ~2025-03-19 | US_ITS ---
EXAMINATION: US THYROID HISTORY: MULTINODULAR GOITER TECHNIQUE: Real-time grayscale ultrasound imaging was performed and images were reviewed. COMPARISON: There are no prior studies available for comparison. FINDINGS: SIZE: The right thyroid lobe measures 5.1 x 2.0 x 2.1 cm. The left thyroid lobe measures 5.3 x 2.4 x 2.0 cm. The isthmus measures 15 mm. FLOW: Flow to the gland is normal. ECHOGENICITY: The echotexture of the gland is heterogeneous. NODULES: Multiple bilateral nodules are noted. The largest nodules are described below: Nodule #: 1 Location: Lower pole of the right thyroid lobe measuring 1.6 x 1.3 x 2.1 cm. Shape: Wider than tall (0 points) Margins: Smooth (0 points) Echotexture: Indeterminate (1 point) Composition: Mixed (1 point) Calcifications: None (0 points) Total points: 2 TIRADS: TR2: Not suspicious Nodule #: 2 Location: Midportion of the right thyroid lobe measuring 8 x 5 x 8 mm. Shape: Wider than tall (0 points) Margins: Smooth (0 points) Echotexture: n/a Composition: Cystic (0 points) Calcifications: None (0 points) Total points: 0 TIRADS: TR1: Benign Nodule #: 3 Location: Lower pole of the left thyroid lobe measuring 1.7 x 1.2 x 1.6 cm. Shape: Wider than tall (0 points) Margins: Ill-defined (0 points) Echotexture: Hyperechoic (1 point) Composition: Mostly solid (2 points) Calcifications: None (0 points) Total points: 3 TIRADS: TR3: Mildly suspicious. Nodule #: 4 Location: Lower pole of the left thyroid lobe measuring 8 x 5 x 9 mm. Shape: Wider than tall (0 points) Margins: Smooth (0 points) Echotexture: n/a Composition: Spongiform (0 points) Calcifications: None (0 points) Total points: 0 TIRADS: TR1: Benign Nodule #: 5 Location: Isthmus, measuring 1.8 x 1.0 x 1.3 cm. Shape: Wider than tall (0 points) Margins: Smooth (0 points) Echotexture: Indeterminate (1 point) Composition: Mixed (1 point) Calcifications: None (0 points) Total points: 2 TIRADS: TR2: Not suspicious US/US thyroid IMPRESSION: Multinodular goiter as described. Follow-up of the nodule at the lower pole of the left thyroid lobe (nodule #3 above) is recommended. ACR TI-RADS Guidelines TR1 (0 points): Benign. No follow-up or biopsy required TR2 (2 points): Not Suspicious. No biopsy or follow up indicated TR3 (3 points): Mildly Suspicious. FNA if >= 2.5 cm, Follow if >= 1.5 cm TR4 (4-6 points): Moderately Suspicious. FNA if >= 1.5 cm, Follow if >= 1.0 cm TR5 (>=7 points): Highly Suspicious. FNA if >= 1.0 cm, Follow if >= 0.5 cm Electronically signed by: Grayson Amaya MD 03/19/2025 03:30 PM [facility]
== END 2025-03-19 12:36 | disposition home or self-care (01) ==
LOC: HO.US 12:35
PROVIDERS: PCP Internal Medicine; Visit Provider Internal Medicine
DX: E04.2 Nontoxic multinodular goiter (principal)
CPT/HCPCS: 76536

== ENCOUNTER → 2025-03-19 13:08 | Outpatient (BNV) | payer OTHER, SELFPAY | PROVIDERS: PCP Internal Medicine; Visit Provider Radiology Diagnostic Radiology | DX: E04.2 Nontoxic multinodular goiter (principal) | CPT/HCPCS: 76536 ==

== ENCOUNTER 2025-04-08 09:52 | Outpatient (AMB) | payer OTHER, SELFPAY ==
[2025-04-08 10:08] VITALS: BP 116/57; PULSE 101; BMI 56.6
--- NOTE | 2025-04-08 10:08 | MHC.OFFVIS ---
Vital Signs 04/08/25 10:08 Height 5 ft 1 in Weight 299 lb 13.259 oz BMI 56.6 BP 116/57 L Blood Pressure Location Lt radial Position Sitting Pulse 101 H Intake Visit Reasons: f/u BA swallow Intake Note: Maryam presents in the office as a follow up for her BA swallow. CC: She states that she threw up whole food that she ate 12 hours prior - states she has nausea and vomiting. Allergies Latex, Natural Rubber Allergy (Mild, Verified 04/08/25 10:11) Hives bee pollen (bee stings) Allergy (Verified 04/08/25 10:11) Anaphylaxis cariprazine (From Vraylar) Allergy (Verified 04/08/25 10:11) lip swelling ceftriaxone (From Rocephin) Allergy (Verified 04/08/25 10:11) Anaphylaxis strawberry Allergy (Verified 04/08/25 10:11) Anaphylaxis HPI Comments Details: 34 y.o F with PMH of obesity, DM, HLD, who is here for follow up. Accompanied by her ex-/friend Jeff Was seen in ER last week for rectal bleeding ongoing for a month that has progressively worsened. This is assoc with cramping lower abd pain. Also reports rectal pressure which gets worse with prolonged sitting. Stool itself is anywhere from brown to black. Reports has had longstanding IBS for which she has had EGD/colo in the past. Has history of anal trauma. Labs reviewed, despite large amount blood noted by pt, does not appear to have had a clinically significant bleeding. H and H stable. In addition, patient also reports significant heartburn, that has not responded to omeprazole 20 mg. For now, she takes OTC omeprazole in as that as a 2nd dose in the evening. Reports having being told about hiatal hernia on previous EGD. 04/07/24: Televisit arranged to go over results again. Pt complains of significant upper abd pain still. Reports was not able to get omeprazole through pharmacy as they are not allowing a refill before 04/14. In terms of rectal bleeding, that has resolved since her colonoscopy. 1. Grade D esophagitis 2. Hiatal hernia 3. Gastritis (biopsy) 4. Gastric polyps 5. Normal duodenum (biopsy) 6. Normal colon and terminal ileum mucosa (biopsy) 7. Internal and external hemorrhoids A. Duodenum, biopsy: Duodenal mucosa with Queenie gland hyperplasia and patchy vascular congestion; otherwise within normal limits. B. Stomach, polypectomy: Fundic gland polyp with background mild chronic inactive inflammation; no Helicobacter organisms seen. C. Stomach, random, biopsy: Antral-type and oxyntic mucosa with mild chronic inactive inflammation; no Helicobacter organisms seen. D. Esophagus, lower, biopsy: Active esophagitis (maximum eosinophil count 2 per high powered field). E. Esophagus, middle, biopsy: Squamous epithelium within normal limits; no inflammation seen. F. Colon, right, biopsy: Colonic mucosa within normal limits. G. Colon, left, biopsy: Colonic mucosa within normal limits 10/07/24: EGD Normal esophagus (biopsy) Hiatal hernia Gastric polyps Normal stomach Normal duodenum Path: A. Esophagus, lower, biopsy: Squamous mucosa within normal limits; negative for inflammation (including intraepithelial eosinophils), fungal organisms, intestinal metaplasia and dysplasia. B. Esophagus, middle, biopsy: Squamous mucosa within normal limits; negative for inflammation (including intraepithelial eosinophils), fungal organisms, intestinal metaplasia and dysplasia 11/03/24: here for post EGD follow up. Reports reflux and regurgitation sx. Also with post prandial pain and early satiety reported but weight curve stable. s/p CCY. As noted above, pt with BMI 58. Discussed that obesity and HH likely contributing to comporomised LES and that would strongly recommend weight management as well as lifestyle changes such as avoiding to lay down within 60 mins of meals. Also has diarrhea. Up to 3 BMs per day despite taking OTC anti-diarrheals. to recall colo bx normal. 02/26/25 Barium swallow: Limited exam due to decreased patient mobility. Mild esophagitis. Trace gastroesophageal reflux. Presenting for follow-up of gastroesophageal reflux disease and management of multiple gastrointestinal symptoms. Barium swallow reviewed- mild reflux with mild esophagitis. Pt also continues to have reflux symptoms, including vomiting undigested food hours after eating. The patient reports a very restricted diet due to multiple food intolerances. She has eliminated ground beef and experiences severe abdominal pain with pork, raising suspicion for Alpha-gal syndrome. She has a known history of lactose intolerance. Gluten sensitivity is questionable as she is unable to tolerate white bread but does fine with pasta or wheat bread. Celiac testing and duo biopsies neg. She reports ongoing diarrhea, with bleeding hemorrhoids for about a week. Does report sitting for prolonged periods as well as cleaning with a washcloth. Her medical history is significant for diabetes, for which she takes metformin. Has not had a discussion re GLP-1A per her report. She has a history of hypercholesterolemia but she is not on medication for it. --- Pt was informed and consented to the use of ambient scribe for this encounter. 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 - Gastrointestinal: Reports vomiting undigested food and bile, abdominal pain after eating certain foods, ongoing diarrhea which is sometimes bloody, and pain from an enlarged spleen. She also reports bleeding hemorrhoids. - Allergic/Immunologic: Reports sensitivity to beef, pork, dairy, and gluten. Physical Exam Exam Exam: No apparent distress, with obesity Nonicteric Abdomen soft, nondistended Alert and oriented x3, uses cane to ambulate Vital Signs: Last Vital Signs Pulse 101 H 04/08/25 10:08 BP 116/57 L 04/08/25 10:08 BMI result Body Mass Index 56.6 Assessment & Plan Assessment & Plan (1) GERD (gastroesophageal reflux disease): Code(s): K21.9 - Gastro-esophageal reflux disease without esophagitis Category: Medical (2) Fatty liver disease, nonalcoholic: Code(s): K76.0 - Fatty (change of) liver, not elsewhere classified Category: Medical (3) Bleeding hemorrhoids: Code(s): K64.9 - Unspecified hemorrhoids Category: Medical (4) Abdominal pain: Code(s): R10.9 - Unspecified abdominal pain Category: Medical (5) Hyperlipidemia: Code(s): E78.5 - Hyperlipidemia, unspecified Category: Medical Plan 1. GERD with nausea and vomiting Has known reflux - may have some component of delayed gastric emptying however hesitant to trial meds like reglan or motegrity due to ongoing diarrhea. Plan: - Cont PPI - Weight loss to improve reflux barrier - Stay upright x 60 mins post meals - Small portions 2. Food intolerance The patient experiences symptoms with multiple foods, including red meat and gluten. The pork and beef intolerance raises suspicion for Alpha-gal syndrome. Plan: - Check alpha gal panel - Pt also advised to see metallurgical engineer to assist with meal planning for her food intolerances and diabetes. 3. Diarrhea Reassured pt that this is not infectious, inflammatory or neoplastic based on work up so far. Likely re to food intolerance vs DGBI related. Plan: - Low FODMAP diet - A fiber supplement as a bulking agent to help with diarrhea. - OK to take imodium as needed for >2 loose stools per day. 3. Hemorrhoids The patient has a chronic history of bleeding hemorrhoids. Has known high risk hemorrhoids 03/2024 colo. She was advised to avoid triggers like straining, lifting heavy weights, wiping aggressively. Plan: - Avoid constipation and straining - Donut pillow Rx was sent to [facility] - She was also instructed to use a vashti bottle or wet wipes for hygiene instead of abrasive toilet paper - Daily fiber supplement 4. Fatty liver disease 5. HLD 6. Diabetes Risk factors include obesity, HLD, DM. - Atorvastatin 20 mg at night time - future refills can be reviewed by PCP - Recheck lipids - Encouraged to discuss GLP-1A with PCP for i) diabetes ii) weight management and iii) hepatic steatosis - She was advised to see a metallurgical engineer for diabetic meal planning. Follow up 4 months Orders: Orders Liver Panel Today K76.0 - Fatty (change of) liver, not elsewhere classified Hemoglobin A1c Today K76.0 - Fatty (change of) liver, not elsewhere classified Lipid Panel Today K76.0 - Fatty (change of) liver, not elsewhere classified Complete Blood Count Auto Diff Today K76.0 - Fatty (change of) liver, not elsewhere classified Medications: New atorvastatin (Lipitor) 20 mg PO BEDTIME 90 tabs 0RF Donut pillow As directed 1 ea 0RF Coding Level of Care Code Est Pt Level 5 (16371) Diagnoses GERD (gastroesophageal reflux disease) K21.9 Fatty liver disease, nonalcoholic K76.0 Bleeding hemorrhoids K64.9 Abdominal pain R10.9 Hyperlipidemia E78.5
--- OUTSIDE RECORDS SUMMARY | 2025-04-08 10:34 | XMS_ITS | Patient Health Record ---
Author Organization [facility] [place], Address [address] [place] [address] Support Name Relationship Address Phone Maryam parker Guarantor Unknown [phone] Reason For Referral No Information Plan Of Treatment Pending Test Test Name Order Date Cepheid SARS-CoV-2 01/03/2021 Insurance Providers Payer Name Payer Address Payer Phone Subscriber Number Group Number Insured Name Patient Relationship to Insured Coverage Start Date Coverage End Date CARES Act Maryam parker Self - patient is the insured
--- OUTSIDE RECORDS SUMMARY | 2025-04-08 10:34 | XMS_ITS | Clinical Summary ---
Author Organization [facility] it Address [address] [place] [address] Care Team Providers Care Curriculum Designer Name Role Phone Guilherme Guillory MD Primary Care Provider [phone] Surgical History Surgery Date Site/Laterality Comments APPENDECTOMY PROCEDURE:APPENDECTOMY SECTION PROCEDURE: SECTION CHOLECYSTECTOMY 11/22/2017 N/A PROCEDURE:CHOLECYSTECTOMY;COMMENT:Procedur e: LAPAROSCOPY CHOLECYSTECTOMY; Surgeon: Vidal Bailon MD; Location: [facility] OPERATING RO[facility]; Service: General; Laterality: [...] on file Sexual Orientation Not on file Last Filed Vital Signs [...] Years) (1 of 2 - PCV) 2009 HPV Vaccines (1 - 3-dose SCD M series) 2017 Cholesterol Screening (Lipid Panel) 03/11/2022 HIV Screening 03/11/2022 Hepatitis C Screening 03/11/2022 Social Influencers of Health Screening 03/11/2022 Depression Screening 04/09/2024 COVID-19 Vaccine ( - 2024-2 6 season) 2024 Influenza Vaccine (#1) 2024 Cervical Cancer Screening: P ap Smear 11/03/2025 11/03/2022 RSV Immunization Adult Patie nts (1 - 1-dose 75+ series) 2065 HIB Vaccines Aged Out No longer eligi [...] smear (11/03/2022 6:17 PM EDT) Case Results [facility] Department of Pathology [address] [place] [address] [address] [address] REG# [id number] CLIA ID: [id number] Name: MARYAM YUSUF Spec #: [id number] Order Location: [facility] Submitting Physican: VERÓNICA TEMPLETON RAIL CAR UNLOADER Cytology Specimen(s) Received A: Cervical/Endocervi trudy-Thinprep Clinical Diagnosis Z12.4 Z11.51 History LMP not provided Other Clinical Conditions Screening pap Send HPV test regardless of pap results Reflex 16/18/45 FINAL CYTOLOGIC DIAGNOSIS Satisfactory for evaluation-Endocer vical Transformation zone component present Negative for Intraepithelial Lesion or Malignancy Trichomonas Vaginalis Forestry Crew Chief:Bessy IG Report Electronically Signed by Belkys Merchant MBA, CLS CT(ASCP) 11/09/2022 09:53:21 Procedures/Addenda HPV Testing Date Ordered: 11/03/2022 Status: Signed Out Date Complete: 11/08/2022 Date Reported: 11/08/2022 Interpretation HPV HIGH RISK: NEGATIVE This specimen was tested and interpreted at [facility] for the presence of E6/E7 viral messenger RNA from 14 high-risk types of HPV (APTIMA Assay). NONE of the following high risk HPV types was detected in this specimen: 16,18,31,33,35,39, 45,51,52,56,58,59, 66,and 68. Procedure Electronically Signed by Belkys Merchant MBA, CLS CT(ASCP) 11/08/2022 17:36:11 Other Specimens: [id number] ICD-9 (s): A: Z12.4 Billing Fee Code(s): 44920 HPVT: 35572 SNOMED Code(s): A: E0004 [id number] [id number] E4433 [id number] HISTORICAL TESTING LAB RESULTING AGENCY 11/03/2022 6:17 PM EDT us [facility] ORDERABLES Fin al Result HISTORICAL TESTING LAB RESULTING AGENCY from Last 3 Months or Most Recently Relevant to Health Maintenance Care Teams Curriculum Designer Relationship Specialty Start Date End Date Guilherme Guillory MD [address] [place] [id number] PCP - General 10/14/22
--- OUTSIDE RECORDS SUMMARY | 2025-04-08 10:34 | XMS_ITS | Clinical Summary ---
Author Organization [facility] Prior to 09/06/24 Address [address] [place] [address] Care Team Providers Care Production Supervisor Trainee Name Role Phone Guilherme Guillory MD Primary Care Provider [phone] Allergies Active Allergy Reactions Criticality Noted Date Comments Cefuroxime Hives Medium 05/23/2017 Kiwi Anaphylaxis High 05/02/2021 Latex 11/18/2017 Ceftriaxone 11/18/2017 Seibert Anaphylaxis High 05/02/2021 Cariprazine Hives 09/01/2020 Lip [...] 0 09/21/2022 Active ergocalciferol (VITAMIN D2) capsule 10310 units Take 1 capsule (50,000 Units total) [...] radiculopathy 09/21/2022 Overview: 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 Care Teams Production Supervisor Trainee Relationship Specialty Start Date End Date Guilherme Guillory MD [facility] [place] [address] PCP - General Family Medicine 10/14/22
== END 2025-04-08 10:47 | disposition home or self-care (01) ==
LOC: HO.HGI 09:52
PROVIDERS: PCP Internal Medicine; Visit Provider Internal Medicine
DX: K21.9 Gastro-esophageal reflux disease without esophagitis (principal); K76.0 Fatty (change of) liver, not elsewhere classified; K64.9 Unspecified hemorrhoids; R10.9 Unspecified abdominal pain; E78.5 Hyperlipidemia, unspecified
CPT/HCPCS: 99214

== ENCOUNTER 2025-04-08 09:52 | Outpatient (REF) | payer OTHER, SELFPAY ==
[2025-04-08 11:14] LABS: MANUAL DIFF FLAG NO
[2025-04-08 11:20] LABS: Hematocrit 40.1 % (37.0-47.0); Hemoglobin 13.7 g/dl (12.0-16.0); Imm Gran Abs Auto 0.09 X10*3/uL (0.00-0.03); Imm Gran Pct Auto 0.9 % (0.0-0.4); Lymphocytes Absolute Auto 3.3 X10*3/uL (1.2-4.9); Mean Corpuscular HGB Conc 34.2 g/dl (31.0-35.0); Mean Corpuscular Hemoglobin 29.0 pg (27.0-33.0); Mean Corpuscular Volume 84.8 fL (80.0-98.0); NRBC Abs Auto 0.000 X10*3/uL (0.0-0.012); NRBC Pct Auto 0.0 /100WBC (0.0-0.2); Platelet Count 361 X10*3/uL (160-400); Red Blood Count 4.73 X10*6/uL (4.20-5.50); White Blood Count 9.8 X10*3/uL (4.8-10.8)
[2025-04-08 12:06] LABS: Alanine Aminotransferase 105 U/L (0-31); Albumin Level 4.5 g/dL (3.5-5.0); Alkaline Phosphatase 123 U/L (39-117); Aspartate Amino Transferase 81 U/L (5-31); Cholesterol 242 mg/dL (<200); HDL Cholesterol 45 mg/dL (>40); Total Protein 7.8 g/dL (6.5-8.0); Triglycerides 405 mg/dL (<150)
== END 2025-04-08 09:53 | disposition home or self-care (01) ==
LOC: HO.LAB 09:52
PROVIDERS: PCP Internal Medicine; Visit Provider Internal Medicine
DX: K21.9 Gastro-esophageal reflux disease without esophagitis (principal); K76.0 Fatty (change of) liver, not elsewhere classified; K64.9 Unspecified hemorrhoids; K90.49 Malabsorption due to intolerance, not elsewhere classified; E11.9 Type 2 diabetes mellitus without complications; E78.5 Hyperlipidemia, unspecified; R11.2 Nausea with vomiting, unspecified; R19.7 Diarrhea, unspecified
CPT/HCPCS: 36415; 80061; 80076; 83036; 85025; 86008